=== PATIENT | male | born 1945 | race Caucasian/White ===

== ENCOUNTER → 2021-12-27 | Outpatient (CLI) | payer MEDICARE ==
[2021-12-27 16:49] LABS: INR 0.9 (<1.2); Partial Thromboplastin Time 22.5 sec (22.0-30.0); Prothrombin Time 10.2 sec (9.0-12.0)
[2021-12-27 22:40] LABS: Appearance,Urine Clear (Clear); Bilirubin,Urine Negative (Negative); Blood,Urine Negative (Negative); Color,Urine Yellow (Yellow); Ketones,Urine Trace mg/dL (Negative); Leukocyte Esterase,Urine Negative (Negative); Nitrite,Urine Negative (Negative); Protein,Urine Negative (Negative); Specific Gravity,Urine 1.027 (1.001-1.030); Urobilinogen,Urine 0.2 (0.2,1.0)
[2021-12-28 00:29] LABS: African American GFR (CKD) 54.1 (60.0-200.0); Albumin 4.6 g/dL (3.8-4.9); Albumin/Globulin Ratio 1.95 (1.60-3.17); Anion Gap 15.7 mmol/L (10.00-18.00); BUN/Creat Ratio 22.53 Ratio (12.00-20.00); Blood Urea Nitrogen 32.9 mg/dL (9.0-27.0); Calcium 9.9 mg/dL (8.7-10.3); Carbon Dioxide 23.5 mmol/L (20.0-27.5); Globulin 2.3 g/dL (1.6-3.3); Non-African American GFR(CKD) 46.7 (60.0-200.0); Total Bilirubin 0.3 mg/dL (0.30-1.20); Total Protein 6.9 g/dL (6.2-8.2)
[2021-12-28 00:56] LABS: HCT 40.3 % (39.6-50.0); HGB 12.7 g/dL (13.0-17.0); MCH 33.2 pg (27.0-32.0); MCHC 31.5 g/dL (32.0-37.0); MCV 105.5 fL (80.0-97.0); NRBC Per 100 WBC 0 /100 WBCS (0.0-0.0); Platelet Count 343 X 10*3/uL (140-440); RBC 3.82 X 10*6/uL (4.40-5.60); RDW 12.7 % (11.5-14.5); WBC 7.39 X 10*3/uL (4.50-10.00)
--- NOTE | 2021-12-28 07:09 | XR ---
EXAMINATION TYPE: XR chest 2V DATE OF EXAM: 12/27/2021 COMPARISON: NONE HISTORY: Shortness of breath TECHNIQUE: Frontal and lateral views of the chest are obtained. FINDINGS: Scattered senescent parenchymal changes noted. Hyperinflation compatible with COPD. No evidence for infiltrate. No evidence for atelectasis. Heart size is stable. Mediastinal structures are stable and grossly unremarkable. No evidence for hilar prominence. Degenerative changes dorsal spine. IMPRESSION: 1. No evidence for acute pulmonary disease.
== END | disposition home or self-care (01) ==
LOC: LABPAT 14:55
PROVIDERS: ATTEND Orthopaedic Surgery
DX: Z01.812 Encounter for preprocedural laboratory examination (principal); R07.9 Chest pain, unspecified; R06.02 Shortness of breath
CPT/HCPCS: 71046; 80053; 81003; 85027; 85610; 85730; 87070

== ENCOUNTER → 2022-01-03 | Outpatient (CLI) | payer MEDICARE ==
[~2022-01-03] MED LIST: REGADENOSON 0.4 MG/5 ML SYRINGE IV PRN
--- NOTE | 2022-01-03 11:00 | ECHOF ---
Referral Reason:R94.31 MEASUREMENTS -------- HEIGHT: 180.3 cm WEIGHT: 80.7 kg BP: RVIDd: 2.6 cm (< 3.3) IVSd: 0.9 cm (0.6 - 1.1) LVIDd: 3.8 cm (3.9 - 5.3) LVPWd: 0.9 cm (0.6 - 1.1) IVSs: 1.7 cm LVIDs: 2.3 cm LVPWs: 1.5 cm Ao Diam: 3.0 cm (2.0 - 3.7) AV Cusp: 1.7 cm (1.5 - 2.6) LA Diam: 2.9 cm (2.7 - 3.8) MV EXCURSION: 12.842 mm (> 18.000) MV EF SLOPE: 48 mm/s (70 - 150) EPSS: 1.6 cm MV E Kartik: 0.55 m/s MV DecT: 240 ms MV A Kartik: 0.66 m/s MV E/A Ratio: 0.82 AV maxP.74 mmHg AV meanP.56 mmHg RAP: 5.00 mmHg RVSP: 18.61 mmHg FINDINGS -------- Undetermined rhythm. This was a technically difficult study with suboptimal views. The left ventricular size is normal. There is mild concentric left ventricular hypertrophy. Overa ll left ventricular systolic function is normal with, an EF between 55 - 60 %. The right ventricle is normal in size. The left atrial size is normal. The right atrial size is normal. Aortic valve is trileaflet and is mildly thickened. There is mild aortic valve sclerosis. Peak/me an gradient across the Aortic Valve is 13.74mmHg / 8.56mmHg. The mitral valve is normal. The mitral valve leaflets are mildly thickened. Mild mitral regurgita tion is present. The tricuspid valve appears structurally normal. Mild tricuspid regurgitation present. Right vent ricular systolic pressure is normal at < 35 mmHg. There is no pulmonic regurgitation present. The aortic root size is normal. Normal inferior vena cava with normal inspiratory collapse consistent with estimated right atrial pre ssure of 5 mmHg. There is no pericardial effusion. CONCLUSIONS -------- 1. The left ventricular size is normal. 2. There is mild concentric left ventricular hypertrophy. 3. Overall left ventricular systolic function is normal with, an EF between 55 - 60 %. 4. Aortic valve is trileaflet and is mildly thickened. 5. There is mild aortic valve sclerosis. 6. Peak/mean gradient across the Aortic Valve is 13.74mmHg / 8.56mmHg. 7. The mitral valve leaflets are mildly thickened. 8. Mild mitral regurgitation is present. 9. Mild tricuspid regurgitation present. 10. There is no pericardial effusion. CONTACT LENS LATHE OPERATOR: Kiya Light RDCS
--- NOTE | 2022-01-03 14:10 | EST ---
EXERCISE STRESS AGE: 76 SEX: M HT: 5'8" WT: 178 lbs. PROTOCOL: Lexiscan Cardiolite STAGE: NA DURATION OF EXERCISE: NA HEART RATE REST: 103 BLOOD PRESSURE REST: 136/75 MAXIMUM HEART RATE ACHIEVED: 128 MAXIMUM BLOOD PRESSURE: 146/72 85% MPHR: 124 100% MPHR: 146 METS: NA INDICATIONS: Abnormal EKG. CLINICAL INFORMATION: Baseline EKG shows sinus rhythm with right bundle branch block. Patient was given intravenous Lexiscan as per protocol, did not have chest pain or diagnostic ST-segment depression. CONCLUSIONS: 1. Inconclusive EKG part of the stress test due to baseline EKG abnormalities. 2. Cardiolite portion of the stress test will be reported separately. MMODL / IJN: [id number] /
--- NOTE | 2022-01-03 16:46 | NM ---
EXAMINATION TYPE: NM stress lexiscan cardiolite DATE OF EXAM: 01/03/2022 COMPARISON: NONE HISTORY: R 94.31 TECHNIQUE: After the intravenous administration of 9.15 mCi Tc 99m Sestamibi - Cardiolite resting SP ECT images acquired 45 minutes post injection. At peak stress 25.4 mCi Tc 99m Sestamibi - Stress images obtained 30 minutes post injection The patient was stressed utilizing 0.4 mg Lexiscan FINDINGS: No fixed defects are evident There is diminished radiotracer accumulation along the lateral wall on the stress images. This has mo re normal radiotracer distribution on the resting images compatible with a stress-induced ischemic ch kemi. This is also identified on the polar maps. There is mild mid to inferior septal wall to measure radiotracer is on stress images. This area appea rs matched with the resting images. The compatible prior small infarct. There is some dyskinesia along the anterior wall near the cardiac base. Ejection fraction is calculated to be 65 % is normal. IMPRESSION: 1. Stress-induced ischemic change lateral wall left ventricle. 2. Wall dyskinesia at the cardiac base along the anterior wall. 3. 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
== END | disposition home or self-care (01) ==
LOC: RADECHMAIN 08:10
PROVIDERS: ATTEND Family Medicine
DX: I51.7 Cardiomegaly (principal); I35.8 Other nonrheumatic aortic valve disorders; R94.31 Abnormal electrocardiogram [ECG] [EKG]
CPT/HCPCS: 93017; 93306; 78452; A9500; J2785

== ENCOUNTER → 2022-02-12 | Outpatient (CLI) | payer MEDICARE ==
[2022-02-12 13:37] LABS: Partial Thromboplastin Time 23.4 sec (22.0-30.0); Prothrombin Time 10.5 sec (9.0-12.0)
[2022-02-12 18:12] LABS: HCT 35.6 % (39.6-50.0); HGB 11.2 g/dL (13.0-17.0); MCH 32.9 pg (27.0-32.0); MCHC 31.5 g/dL (32.0-37.0); MCV 104.7 fL (80.0-97.0); Mean Platelet Volume 8.9 fL (9.5-12.2); NRBC Per 100 WBC 0 /100 WBCS (0.0-0.0); Platelet Count 336 X 10*3/uL (140-440); RDW 12.9 % (11.5-14.5); WBC 5.81 X 10*3/uL (4.50-10.00)
[2022-02-12 18:18] LABS: African American GFR (CKD) 69.6 (60.0-200.0); Anion Gap 12.9 mmol/L (10.00-18.00); BUN/Creat Ratio 22.12 Ratio (12.00-20.00); Blood Urea Nitrogen 26.1 mg/dL (9.0-27.0); Carbon Dioxide 25.5 mmol/L (20.0-27.5); Potassium 4.4 mmol/L (3.5-5.5)
[2022-02-12 18:19] LABS: Albumin 4.1 g/dL (3.8-4.9); Albumin/Globulin Ratio 1.94 (1.60-3.17); Calcium 9.4 mg/dL (8.7-10.3); Globulin 2.1 g/dL (1.6-3.3); Total Bilirubin 0.5 mg/dL (0.30-1.20); Total Protein 6.2 g/dL (6.2-8.2)
[2022-02-12 20:38] LABS: Appearance,Urine Clear (Clear); Bacteria,Urine None Seen /HPF (None Seen); Bilirubin,Urine Negative (Negative); Blood,Urine Negative (Negative); Color,Urine Yellow (Yellow); Ketones,Urine Trace mg/dL (Negative); Nitrite,Urine Negative (Negative); Specific Gravity,Urine 1.023 (1.001-1.030); Urobilinogen,Urine 0.2 (0.2,1.0)
== END | disposition home or self-care (01) ==
LOC: LABPAT 11:24
PROVIDERS: ATTEND Orthopaedic Surgery
DX: Z01.812 Encounter for preprocedural laboratory examination (principal); M16.11 Unilateral primary osteoarthritis, right hip
CPT/HCPCS: 80053; 81001; 85027; 85610; 85730; 87070

== ENCOUNTER 2022-02-20 10:05 | Observation (INO) | payer MEDICARE ==
[2022-02-16 16:54] VITALS: BMI 23.6
[~2022-02-20 10:05] MED LIST changes: +ACETAMINOPHEN TAB 500 MG TAB PO PRN; +DEXAMETHASONE SOD PHOSPHATE 4 MG/ML 1 ML VIAL IV ONE; +GABAPENTIN 300 MG CAP PO PRN; +HYDROmorphone 0.5 MG/0.5 ML SYRINGE IVP PRN; +MELOXICAM 7.5 MG TAB PO PRN; +MIDAZOLAM 2 MG/2 ML VIAL IV PRN; +ONDANSETRON 4 MG/2 ML VIAL IVP ONE; -REGADENOSON 0.4 MG/5 ML SYRINGE IV PRN; +TRANEXAMIC ACID IN NACL,ISO-OS 1,000 MG in SALINE 1 100ML.BAG IVPB PRN
[2022-02-20 10:42] LABS: Glucose,Whole Blood 158 mg/dL (75-99)
[2022-02-20] MEDS: LACTATED RINGERS 1,000 ML IV SCH (10:43)
[2022-02-20] MEDS ORDERED: ACETAMINOPHEN TAB 500 MG TAB ONE (10:49)
[2022-02-20] MEDS ORDERED: MIDAZOLAM 2 MG/2 ML VIAL ONE (11:13)
[2022-02-20] MEDS ORDERED: fentaNYL (PF) 50 MCG/ML 2 ML AMP ONE (11:13)
[2022-02-20] MEDS ORDERED: PHENYLEPHRINE-0.9% NACL SYG 1,000 MCG/10 ML SYRINGE ONE (11:13)
[2022-02-20] MEDS ORDERED: PROPOFOL 10 MG/ML 20 ML VIAL IV ONE (11:13)
[2022-02-20] MEDS ORDERED: TRANEXAMIC ACID IN NACL,ISO-OS 1,000 MG/100 ML BAG ONE (11:13)
[2022-02-20] MEDS ORDERED: ceFAZolin 1,000 MG in SODIUM CHLORIDE 0.9% 1,000 ML IRRIGATION ONE (11:18)
[2022-02-20] MEDS ORDERED: ROPIVACAINE 5 MG/ML 30 ML VIAL MISCELLANE ONE ×2 (11:44→12:20)
[2022-02-20] MEDS ORDERED: LACTATED RINGERS 1,000 ML IV ONE (12:07)
--- NOTE | 2022-02-20 12:26 | P.OP ---
Date of Procedure: 02/20/22 Preoperative Diagnosis: Severe osteoarthritis right hip Postoperative Diagnosis: Severe osteoarthritis right hip Procedure(s) Performed: Right total hip arthroplasty with a direct anterior approach Implants: [employer] Polarstem standard size 2 collared [employer] R3, 3 hole hemispherical acetabular shell, 52 mm [employer] Reflection 6.5 mm cancellus screw, 20 mm 2 [employer] R3, XLPE 20 acetabular liner [employer] Oxinium femoral head 36 m, +0 All components were press-fit. The articulation is Oxinium on polyethylene. Anesthesia: spinal Surgeon: Michael Parker [employer] Installer #1: Stephanie Arreguin Estimated Blood Loss (ml): 250 Pathology: other (Femoral head) Condition: stable Disposition: PACU Indications for Procedure: After failure of conservative treatment we discussed the surgical and nonsurgical treatment options at length. Patient wishes to proceed with a total hip arthroplasty with a direct anterior approach. Complications specific to this procedure were discussed at length, including but not limited to infection, leg length discrepancy, dislocation, nerve injury, and fracture. Covid-19 was also discussed at length with the patient, and they are aware of the current policies and procedures. The patient was given the option of delaying surgery, but they elect to proceed knowing these risks. Patient is aware of all these complications and informed consent was obtained Operative Findings: The operative findings are consistent with severe osteoarthritis of the right hip Description of Procedure: Patient was seen and evaluated in the preoperative area and the consent was reviewed. The operative site was marked with a skin marker. The patient was then brought to the operating room and given preoperative antibiotics intravenously. 1 g of Tranexamic acid was also given intravenously. A spinal anesthetic was administered by the anesthesia department. The patient was then placed on the [place] table with the bony prominences well-padded. The hip area was then prepped with a ChloraPrep solution and draped in the usual sterile fashion. A universal timeout was then performed, which confirmed the patient's name, surgical site, ALLERGIES, and procedure being performed on the consent. Next the incision site was located at 1 cm distal and 2 cm lateral to the anterior superior iliac spine. The skin and subcutaneous tissues were sharply incised. Incision was carefully dissected down to the fascia overlying the tensor fascia alex muscle. This fascia was then incised in line with the incision. Care was taken to stay laterally in order to avoid injuring the lateral femoral cutaneous nerve. Next, using blunt finger dissection, the tensor fascia alex muscle was dissected off its investing fascia. The muscle was then carefully retracted laterally with a cobra retractor over the lateral neck of the femur. Next, the circumflex vessels were identified and cauterized using the AquaMantis device. The anterior hip capsule was then exposed. The capsule was then opened and an inverted T fashion. Cobra retractors were then placed intracapsularly. The retractors were maintained intracapsular throughout the procedure. The proximal femur was then visualized. Fluoroscopic x-rays were then taken in order to evaluate the preoperative leg lengths. A small amount of traction was placed on the leg. The femoral neck was then osteotomized at the appropriate level above the lesser trochanter. A small wedge of bone was then removed from the remaining femoral head. Next, using a corkscrew the femoral head was removed from the acetabulum. On gross visual inspection, the femoral head had complete loss of articular cartilage and multiple periarticular osteophytes. The femoral head was then measured. Attention was then turned to the acetabulum. The acetabulum was exposed and any remaining labrum was excised. Sequential reaming of the acetabulum was performed using fluoroscopic guidance until there was a good bed of bleeding cancellus bone. When the appropriate size was reached, a trial was then placed. The position and fit of the trial was checked with fluoroscopy. The trial was then removed. Then, using fluoroscopic guidance, the final implant was impacted at 20 of anteversion and 40 of abduction, and fully seated in the acetabulum. 2 screws were then placed in the acetabulum. Again fluoroscopy was used to check position of the screws. Next, the liner was then impacted, with a 20 elevated liner located in the anterior superior quadrant. Component locking was confirmed. Attention was then directed to the femur. With the aid of the [place]wood table, the femur was externally rotated to approximately 130, extended, and adducted under the opposite leg. A side hook was then placed under the proximal femur, and the side hook elevator was used to elevate the proximal femur while releasing the capsule. Retractors were then placed. A capsular release was performed, as well as a release of the conjoined tendon, which afforded excellent visualization of the proximal femur. Next, a box osteotome was used to lateralize the proximal femur. A wrapper hand was then used to locate the femoral canal. Sequential broaching was then performed with appropriate size which afforded excellent fixation in the proximal femur. A trial was then placed with appropriate head and neck, and the hip was gently reduced with the aid of the [place]wood table. Fluoroscopy was then used to check position of the components, as well as to ensure equal leg lengths. The hip was then gently dislocated and the trials were then removed. Final implants were then impacted and the hip was again reduced. Final fluoroscopic x-rays confirmed that the components were in anatomic position, as well as equal leg lengths. The hip was also taken through range of motion, and found to be stable. The hip was then copiously irrigated with antibiotic solution with pulsatile lavage. The hip was then irrigated with Irrisept solution. The soft tissues were then injected with a ropivacaine solution. A second dose of 1 g of Tranexamic acid was also given intravenously. The fascia was then closed with 2-0 strata fix suture. The subcutaneous tissue was closed with 3-0 Vicryl. The subcuticular tissue was closed with 3-0 strata fix suture. The skin was then closed with Exofin skin glue. After the glue and dried, and Optifoam silver impregnated dressing was applied. The patient was then transferred to the recovery room in stable condition. The assistant cook SIRI Walker was required due to the complexity of surgery, and the need for skilled surgical aides teacher for positioning, draping, exposure, retraction, and closure of the wound.
--- NOTE | 2022-02-20 12:41 | FL ---
EXAMINATION TYPE: FL guidance operating room, XR Hip Limited RT DATE OF EXAM: 02/20/2022 COMPARISON: NONE HISTORY: 77-year-old male is here right hip replacement TECHNIQUE: Intraoperative fluoroscopy FINDINGS: 2 intraoperative fluoroscopic images demonstrating right hip total arthroplasty. Previous left hip total arthroplasty is noted. FLUOROSCOPY Fluoroscopy time of 33 seconds was used during right hip replacement. 2 image/s document/s the proc edure. IMPRESSION: Intraoperative fluoroscopy as above.
[2022-02-20] MEDS ORDERED: NALOXONE 0.4 MG/ML 1 ML VIAL IV PRN (12:48)
[2022-02-20] MEDS ORDERED: ONDANSETRON 4 MG/2 ML VIAL IVP PRN (12:48)
[2022-02-20] MEDS ORDERED: MAGNESIUM HYDROXIDE 2,400 MG/10 ML CUP PO PRN (12:48)
[2022-02-20] MEDS ORDERED: HYDROmorphone 0.5 MG/0.5 ML SYRINGE IVP PRN ×3 (12:48)
[2022-02-20] MEDS ORDERED: HYDROcodone/APAP 7.5-325MG 1 EACH TAB PO PRN ×2 (12:51)
--- NOTE | 2022-02-20 13:13 | XR ---
EXAMINATION TYPE: XR Hip Limited RT DATE OF EXAM: 02/20/2022 Comparison: None Clinical History: 77-year-old male status post ARTHROPLASTY Findings: Image shows placement of right hip total arthroplasty. Acetabular cup and femoral stem components of the prosthesis appear well seated without periprosthetic fracture. There appears to be some residual bony debris along the lateral aspect of the acetabular cup component. Scattered soft tissue air relat ed to recent operation. Vascular calcifications. Impression: Uncomplicated postoperative appearance right hip total arthroplasty. Some residual bony debris noted along the lateral aspect of the acetabular cup component.
[2022-02-20 15:37] LABS: Glucose,Whole Blood 172 mg/dL (75-99)
[2022-02-20] MEDS: SODIUM CHLORIDE 0.9% 1,000 ML IV SCH (19:21)
--- NOTE | 2022-02-20 19:56 | CONS ---
CONSULTATION This is a 77-year-old white male with diabetes and abnormal cardiac stress test. He underwent spinal surgery to have his hip replaced on the right for severe intractable pain. He has a recent history of hypoglycemia, for which some of his diabetic medicines were stopped, which cleared that up. He failed a stress test, but Cardiology recommended spinal surgery, as his insurance failed to allow a heart catheterization. He has NO ALLERGIES. Home medications: Metformin 500 b.i.d., atorvastatin 40 mg daily, lisinopril/hydrochlorothiazide 20/25 daily, tramadol 50 b.i.d., meloxicam 15 daily. Past surgical history: Cataracts, left total hip. He smoke, consumes alcohol occasionally. Otherwise negative. He is postop surgery at this time. Heart S1, S2. Lungs clear. GI soft. Hematology negative Homans. Hip wrapped. ASSESSMENT: 1. History of coronary artery disease. 2. Diabetes mellitus. 3. Dyslipidemia. 4. Hypertension. Prognosis guarded. Treat him with all his home medicines possible. Monitor him postoperatively for any signs of heart disease. He is saturating 99% on room air. Blood pressure 138/78, temperature 98, pulse 67 at this time. MMODL / IJN: [id number] /
[2022-02-20] MEDS ORDERED: ATORVASTATIN 10 MG TAB PO SCH (21:00)
[2022-02-20] MEDS: SENNOSIDES-DOCUSATE SODIUM 1 EACH TAB PO SCH (21:56)
[2022-02-20] MEDS: traMADol 50 MG TAB PO SCH (21:56)
[2022-02-20] MEDS: ASPIRIN 325 MG TAB PO SCH (21:57)
[2022-02-20] MEDS: METOPROLOL SUCCINATE (ER) 25 MG TAB.ER.24H PO SCH (21:57)
[2022-02-20] MEDS: ATORVASTATIN 40 MG TAB PO SCH (21:57)
[2022-02-20] MEDS: prednisoLONE ACETATE 1% OPHTH DROPS 5 ML BTL LEFT EYE SCH (21:58)
[2022-02-20 22:01] LABS: Glucose,Whole Blood 440 mg/dL (75-99)
[2022-02-20] MEDS: INSULIN ASPART (NovoLOG) 100 UNIT/ML VIAL SQ SCH (22:53)
[2022-02-20] MEDS: metFORMIN 500 MG TAB PO SCH (22:53)
[2022-02-21] MEDS: LACTATED RINGERS 1,000 ML IV SCH (06:23)
[2022-02-21 07:11] LABS: Glucose,Whole Blood 174 mg/dL (75-99)
[2022-02-21] MEDS ORDERED: INSULIN ASPART (NovoLOG) 100 UNIT/ML VIAL SQ SCH (07:30)
[2022-02-21] MEDS: LISINOPRIL-HCTZ 10-12.5 MG 1 EACH TAB PO SCH (07:37)
[2022-02-21] MEDS: ASPIRIN 325 MG TAB PO SCH ×2 (07:37→21:30)
[2022-02-21] MEDS: traMADol 50 MG TAB PO SCH ×2 (07:37→21:31)
[2022-02-21] MEDS: INSULIN ASPART (NovoLOG) 100 UNIT/ML VIAL SQ SCH ×4 (07:38→21:33)
[2022-02-21] MEDS: SODIUM CHLORIDE 0.9% 1,000 ML IV SCH ×2 (07:38→23:29)
[2022-02-21] MEDS: metFORMIN 500 MG TAB PO SCH ×2 (07:38→21:31)
--- NOTE | 2022-02-21 08:40 | P.PN ---
Subjective Progress Note Date: 02/21/22 Principal diagnosis: Primary osteoarthritis right hip. Status post total right hip arthroplasty was direct anterior approach This is a 77-year-old male who is status post total right hip arthroplasty was direct anterior approach. He is doing fairly well from an orthopedic standp oint. He is awaiting physical therapy this morning. He is anticipating discharge to inpatient rehab in the next day or so. He has no new complaints or concerns today. Vital signs and labs are stable. Objective - Vital Signs Vital signs: Vital Signs Temp 98.6 F 02/21/22 02:00 Pulse 79 02/21/22 02:00 Resp 16 02/20/22 20:00 BP 121/56 02/21/22 02:00 Pulse Ox 99 02/21/22 02:00 Intake & Output 02/20/22 02/21/22 02/21/22 18:59 06:59 18:59 Intake Total 1551 Output Total 250 Balance 1301 Weight 73.4 kg Intake: IV 1551 Output: Estimated Blood Loss 250 Other: Voiding Method Urinal Diaper # Voids 2 # Bowel Movements 0 - Exam Exam of the right hip reveals that the dressing is clean, dry and intact. He has full foot and ankle motion bilaterally. No calf pain with palpation. Neurovascular status to the lower extremities is intact. - Labs Labs: Abnormal Lab Results - Last 24 Hours (Table) 02/20/22 02/20/22 02/20/22 Range/Units 10:38 15:34 22:00 POC Glucose (mg/dL) 158 H 172 H 440 H (75-99) mg/dL 02/21/22 Range/Units 07:09 POC Glucose (mg/dL) 174 H (75-99) mg/dL Assessment and Plan (1) Primary localized osteoarthritis of right hip Current Visit: Yes Status: Acute Code(s): M16.11 - UNILATERAL PRIMARY OSTEOARTHRITIS, RIGHT HIP SNOMED Code(s): 995519017617138 (2) Status post total replacement of right hip Current Visit: Yes Status: Acute Code(s): Z96.641 - PRESENCE OF RIGHT ARTIFICIAL HIP JOINT SNOMED Code(s): 177421073200 Plan: The clinical findings are discussed with the patient. We will begin physical therapy today and await rehab placement and the next day or so.
[2022-02-21 08:59] LABS: Basophils # (A) 0.05 X 10*3/uL (0.00-0.10); Basophils % (A) 0.7 %; Eosinophils % (A) 1.4 %; HCT 28.4 % (39.6-50.0); HGB 9.2 g/dL (13.0-17.0); Immature Grans, Automated 0.3 %; Lymphocytes # (A) 1.01 X 10*3/uL (0.90-5.00); Lymphocytes % (A) 14.1 %; MCH 33.8 pg (27.0-32.0); MCHC 32.4 g/dL (32.0-37.0); MCV 104.4 fL (80.0-97.0); Mean Platelet Volume 9.4 fL (9.5-12.2); Monocytes # (A) 1.08 X 10*3/uL (0.20-1.00); Monocytes % (A) 15.1 %; NRBC Per 100 WBC 0 /100 WBCS (0.0-0.0); Neutrophils # (A) 4.91 X 10*3/uL (1.80-7.70); Neutrophils % (A) 68.4 %; Platelet Count 231 X 10*3/uL (140-440); RBC 2.72 X 10*6/uL (4.40-5.60); RDW 13.4 % (11.5-14.5); WBC 7.17 X 10*3/uL (4.50-10.00)
[2022-02-21] MEDS ORDERED: ASPIRIN 81 MG PO SCH (09:00)
[2022-02-21 11:43] LABS: Glucose,Whole Blood 153 mg/dL (75-99)
[2022-02-21] MEDS: prednisoLONE ACETATE 1% OPHTH DROPS 5 ML BTL LEFT EYE SCH ×2 (12:28→21:35)
--- NOTE | 2022-02-21 15:36 | PN ---
PROGRESS NOTE This 77-year-old white male is status post direct anterior approach this morning. Yesterday he was having minimal pains. Blood pressure 121/56, pulse 79, respiratory rate 16, O2 99, temperature 98.6. He is on oral pain medications. Cardiovascular S1, S2. Lungs clear. GI soft. He is status post osteoarthritis and replacement of the right hip. Pain is greatly improved. Monitor his sugars while he is here. He is on Accu-Cheks. His sugar was 400 last night. Hemoglobin is 9.2. Now sugars are in the mid 100. Sugars are 153 up to 440. Prognosis is guarded. Continue current treatments. MMODL / IJN: [id number] /
[2022-02-21 16:41] LABS: Glucose,Whole Blood 172 mg/dL (75-99)
[2022-02-21 20:22] LABS: Glucose,Whole Blood 137 mg/dL (75-99)
[2022-02-21] MEDS: SENNOSIDES-DOCUSATE SODIUM 1 EACH TAB PO SCH (21:31)
[2022-02-21] MEDS: ATORVASTATIN 40 MG TAB PO SCH (21:31)
[2022-02-21] MEDS: METOPROLOL SUCCINATE (ER) 25 MG TAB.ER.24H PO SCH (21:31)
[2022-02-22 03:29] LABS: Glucose,Whole Blood 205 mg/dL (75-99)
--- NOTE | 2022-02-22 05:06 | XR ---
EXAMINATION TYPE: XR Hip RT and AP Pelvis DATE OF EXAM: 02/22/2022 COMPARISON: 02/20/2022 HISTORY: Fall. Pain TECHNIQUE: 3 views FINDINGS: Pelvic ring is intact. There is bilateral hip prosthesis. Proximal right femur is intact. N o fracture seen. Sacroiliac joints are intact. IMPRESSION: Negative exam. No fracture seen. No adverse change.
--- NOTE | 2022-02-22 05:07 | XR ---
EXAMINATION TYPE: XR knee complete bilateral DATE OF EXAM: 02/22/2022 COMPARISON: NONE HISTORY: Fall. Pain TECHNIQUE: 3 views each knee FINDINGS: There is atherosclerotic vascular calcification. There is no sign of knee joint effusion. I see no fracture nor dislocation. There is no significant joint space narrowing. There is no sign of joint effusion. IMPRESSION: No acute abnormality of the left and right knee.
[2022-02-22 06:50] LABS: Glucose,Whole Blood 201 mg/dL (75-99)
[2022-02-22] MEDS: ASPIRIN 325 MG TAB PO SCH ×2 (07:31→20:29)
[2022-02-22] MEDS: metFORMIN 500 MG TAB PO SCH ×2 (07:32→20:28)
[2022-02-22] MEDS: LISINOPRIL-HCTZ 10-12.5 MG 1 EACH TAB PO SCH (07:32)
[2022-02-22] MEDS: INSULIN ASPART (NovoLOG) 100 UNIT/ML VIAL SQ SCH ×4 (07:32→20:28)
[2022-02-22] MEDS: prednisoLONE ACETATE 1% OPHTH DROPS 5 ML BTL LEFT EYE SCH ×2 (07:33→20:29)
[2022-02-22] MEDS: traMADol 50 MG TAB PO SCH ×2 (07:34→20:30)
--- NOTE | 2022-02-22 08:52 | P.PN ---
Subjective Progress Note Date: 02/22/22 This is a 77 year old male who is status post right total hip arthroplasty. This is postoperative day #1 and patient is seen and evaluated at bedside today. Patient states that he fell last night trying to use the bathroom. Patient states that he landed on his elbows and denies head injury or loss of conci ousness. Patient states that he feels good this morning and has been able to walk with the nursing staff. Per nursing, the patient has been having trouble with voiding and got up by himself to use the bathroom when he fell. Objective - Vital Signs Vital signs: Vital Signs Temp 98.7 F 02/22/22 03:30 Pulse 89 02/22/22 03:30 Resp 16 02/22/22 02:00 BP 114/68 02/22/22 03:30 Pulse Ox 99 02/22/22 03:30 Intake & Output 02/21/22 02/22/22 02/22/22 18:59 06:59 18:59 Output Total 1100 Balance -1100 Output: Urine 1100 Coude 1100 Other: # Voids 1 # Bowel Movements 1 - Exam On exam patient is lying comfortably in bed in no acute distress. Patient is alert and oriented x3. Dressing is clean, dry and intact. There is minimal soft tissue swelling. Calf is soft and nontender to palpation. Sensation intact. Neurovascular status and circulatory status are intact. - Labs CBC & Chem 7: 02/21/22 04:59 Labs: Abnormal Lab Results - Last 24 Hours (Table) 02/21/22 02/21/22 02/21/22 Range/Units 04:59 11:42 16:36 RBC 2.72 L (4.40-5.60) X 10*6/uL Hgb 9.2 L (13.0-17.0) g/dL Hct 28.4 L (39.6-50.0) % MCV 104.4 H (80.0-97.0) fL MCH 33.8 H (27.0-32.0) pg MPV 9.4 L (9.5-12.2) fL Monocytes # 1.08 H (0.20-1.00) X 10*3/uL POC Glucose (mg/dL) 153 H 172 H (75-99) mg/dL 02/21/22 02/22/2202/22/22 Range/Units 20:21 03:28 06:47 RBC (4.40-5.60) X 10*6/uL Hgb (13.0-17.0) g/dL Hct (39.6-50.0) % MCV (80.0-97.0) fL MCH (27.0-32.0) pg MPV (9.5-12.2) fL Monocytes # (0.20-1.00) X 10*3/uL POC Glucose (mg/dL) 137 H 205 H 201 H (75-99) mg/dL Assessment and Plan (1) Primary localized osteoarthritis of right hip Current Visit: Yes Status: Acute Code(s): M16.11 - UNILATERAL PRIMARY OSTEOARTHRITIS, RIGHT HIP SNOMED Code(s): 110047451686884 (2) Status post total replacement of right hip Current Visit: Yes Status: Acute Code(s): Z96.641 - PRESENCE OF RIGHT ARTIFICIAL HIP JOINT SNOMED Code(s): 670197858162 Plan: 1. Weightbearing as tolerated to the right lower extremity with a walker. 2. Continue anticoagulation with aspirin. 3. Continue routine postoperative care and pain control. 4. Appreciate input from medicine. 5. X-rays of the right hip, pelvis and bilateral knees are reviewed and are negative. 6. Planning for discharge to [facility] in the next 24-48 hours.
[2022-02-22 11:35] LABS: Glucose,Whole Blood 213 mg/dL (75-99)
[2022-02-22] MEDS ORDERED: FLUoxetine HCL 10 MG CAP PO STA (12:12)
[2022-02-22] MEDS: TAMSULOSIN 0.4 MG CAP.ER.24H PO SCH (12:18)
[2022-02-22] MEDS: FLUoxetine HCL 10 MG CAP PO SCH (13:56)
[2022-02-22] MEDS: CYCLOBENZAPRINE 10 MG TAB PO PRN ×2 (14:42→20:28)
[2022-02-22 16:28] LABS: Glucose,Whole Blood 177 mg/dL (75-99)
[2022-02-22] MEDS: LACTATED RINGERS 1,000 ML IV SCH (19:49)
[2022-02-22] MEDS: SODIUM CHLORIDE 0.9% 1,000 ML IV SCH (19:49)
[2022-02-22 20:04] LABS: Glucose,Whole Blood 194 mg/dL (75-99)
[2022-02-22] MEDS: SENNOSIDES-DOCUSATE SODIUM 1 EACH TAB PO SCH (20:28)
[2022-02-22] MEDS: ATORVASTATIN 40 MG TAB PO SCH (20:29)
[2022-02-22] MEDS: METOPROLOL SUCCINATE (ER) 25 MG TAB.ER.24H PO SCH (20:29)
--- NOTE | 2022-02-22 20:45 | PN ---
PROGRESS NOTE A 77-year-old white male status post hip replacement, right-sided hip pain. He is having no chest pain, shortness of breath. He is having difficulty urinating. Started on Flomax 0.4 mg daily. Continue on this at this point and for depression we will start him on fluoxetine 10 mg daily. Discussed with the patient both of these medications. He will go to rehab center at [facility] when he is released. Temp 98.8, blood pressure 143/66, O2 99, pulse 90, respiratory 16 to 18. ASSESSMENT: 1. Status post hip replacement. 2. Hypertension. 3. Coronary artery disease. 4. Diabetes mellitus, sugars in the mid 100s to 200s. On Accu-Chek protocol. 5. Possibly get him into the rehab center soon. 6. He may have to go up there with a Mart[place]nez on Flomax for few days and then I can have it removed. MMODL / IJN: [id number] /
[2022-02-23] MEDS: SODIUM CHLORIDE 0.9% 1,000 ML IV SCH (05:58)
[2022-02-23 07:03] LABS: Glucose,Whole Blood 184 mg/dL (75-99)
[2022-02-23] MEDS: metFORMIN 500 MG TAB PO SCH (07:19)
[2022-02-23] MEDS: ASPIRIN 325 MG TAB PO SCH (07:19)
[2022-02-23] MEDS: INSULIN ASPART (NovoLOG) 100 UNIT/ML VIAL SQ SCH ×2 (07:19→11:53)
[2022-02-23] MEDS: prednisoLONE ACETATE 1% OPHTH DROPS 5 ML BTL LEFT EYE SCH (07:20)
[2022-02-23] MEDS: LISINOPRIL-HCTZ 10-12.5 MG 1 EACH TAB PO SCH (07:20)
[2022-02-23] MEDS: FLUoxetine HCL 10 MG CAP PO SCH (07:20)
[2022-02-23] MEDS: TAMSULOSIN 0.4 MG CAP.ER.24H PO SCH (07:22)
[2022-02-23] MEDS: traMADol 50 MG TAB PO SCH (07:24)
[2022-02-23 07:28] VITALS: RESP 17
[2022-02-23 09:05] LABS: Basophils # (A) 0.03 X 10*3/uL (0.00-0.10); Basophils % (A) 0.4 %; Eosinophils # (A) 0.18 X 10*3/uL (0.04-0.35); Eosinophils % (A) 2.6 %; HCT 26.1 % (39.6-50.0); HGB 8.6 g/dL (13.0-17.0); Immature Grans, Automated 0.4 %; Lymphocytes # (A) 0.91 X 10*3/uL (0.90-5.00); Lymphocytes % (A) 13.3 %; MCH 33.7 pg (27.0-32.0); MCV 102.4 fL (80.0-97.0); Mean Platelet Volume 9.6 fL (9.5-12.2); Monocytes # (A) 0.96 X 10*3/uL (0.20-1.00); Monocytes % (A) 14.1 %; NRBC Per 100 WBC 0 /100 WBCS (0.0-0.0); Neutrophils # (A) 4.72 X 10*3/uL (1.80-7.70); Neutrophils % (A) 69.2 %; Platelet Count 238 X 10*3/uL (140-440); RBC 2.55 X 10*6/uL (4.40-5.60); RDW 13.8 % (11.5-14.5); WBC 6.83 X 10*3/uL (4.50-10.00)
--- NOTE | 2022-02-23 09:37 | P.DS ---
Providers Date of admission: 02/22/22 13:38 Expected date of discharge: 02/23/22 Attending physician: Michael Parker Consults: 02/20/22 12:48 Consult Physician Routine Consulting Provider: Bill Banks Reason/Comments: medical management Do you want consulting provider notified?: Yes Primary care physician: Bill Banks - Discharge Diagnosis(es) (1) Primary localized osteoarthritis of right hip Current Visit: Yes Status: Acute (2) Status post total replacement of right hip Current Visit: Yes Status: Acute Hospital Course: This is a 77-year-old male with known history of degenerative arthritis of the right hip. The patient presented for evaluation as an outpatient. After discussion and consideration patient elects to proceed with total hip arthroplasty. The patient is seen preoperatively by Dr. Parker and medically cleared for surgery by their primary care physician. Patient is admitted to [facility] on 02/20/2022 for total hip arthroplasty. The procedure is performed without complication or sequelae. The patient is doing well postoperatively. Labs and vital signs are stable on day of discharge. On day of discharge patient's hip incision is healing well. There is minimal erythema. There is no drainage noted at this time. There is minimal soft tissue swelling to the hip and thigh. Patient has full foot and ankle motion without difficulty or pain. Calf is soft and nontender to palpation. Neurovascular status to the right lower extremity is intact. Patient is discharged to rehab in good condition. Please see med rec for accurate list of home medications. Plan - Discharge Summary Discharge Rx Participant: No New Discharge Prescriptions: New Sennosides [Senokot] 2 tab PO DAILY PRN #60 tablet PRN Reason: Constipation Ondansetron Odt [Zofran Odt] 1 tab PO Q8HR PRN #10 tab PRN Reason: Nausea Aspirin 325 mg PO BID #60 tab HYDROcodone/APAP 7.5-325MG [[place] 7.5-325] 1 - 2 tab PO Q6H PRN #32 tab PRN Reason: Pain No Action traMADol HCL [Ultram] 50 mg PO BID Atorvastatin Calcium [Lipitor] 40 mg PO HS prednisoLONE ACETATE 1% OPHTH [Pred Forte 1%] 1 drop LEFT EYE BID Naproxen Sodium [Aleve] 220 mg PO BID PRN PRN Reason: Pain Acetaminophen/Diphenhydramine [Tylenol PM 500-25mg] 1 tab PO HS PRN PRN Reason: Insomnia Naproxen Sodium [Aleve] 660 mg PO DAILY metFORMIN HCL 1,000 mg PO BID Lisinopril-Hctz 10-12.5 mg [Zestoretic 10-12.5] 1 tab PO DAILY Aspirin 81 mg PO DAILY Metoprolol Succinate (ER) [Toprol Xl] 12.5 mg PO HS Discharge Medication List Atorvastatin Calcium [Lipitor] 40 mg PO HS 12/29/21 [History] Lisinopril-Hctz 10-12.5 mg [Zestoretic 10-12.5] 1 tab PO DAILY 12/29/21 [History] Naproxen Sodium [Aleve] 660 mg PO DAILY 12/29/21 [History] metFORMIN HCL 1,000 mg PO BID 12/29/21 [History] prednisoLONE ACETATE 1% OPHTH [Pred Forte 1%] 1 drop LEFT EYE BID 12/29/21 [History] traMADol HCL [Ultram] 50 mg PO BID 12/29/21 [History] Acetaminophen/Diphenhydramine [Tylenol PM 500-25mg] 1 tab PO HS PRN 01/04/22 [History] Naproxen Sodium [Aleve] 220 mg PO BID PRN 01/04/22 [History] Aspirin 81 mg PO DAILY 01/12/22 [History] Metoprolol Succinate (ER) [Toprol Xl] 12.5 mg PO HS 02/16/22 [History] Aspirin 325 mg PO BID #60 tab 02/20/22 [Rx] Ondansetron Odt [Zofran Odt] 1 tab PO Q8HR PRN #10 tab 02/20/22 [Rx] Sennosides [Senokot] 2 tab PO DAILY PRN #60 tablet 02/20/22 [Rx] HYDROcodone/APAP 7.5-325MG [[place] 7.5-325] 1 - 2 tab PO Q6H PRN #32 tab 02/22/22 [Rx] Follow up Appointment(s)/Referral(s): Myke Juan, [NON-STAFF] - As Needed Michael Parker DO [Doctor of Osteopathic Medicine] - 03/08/22 1:00 pm Activity/Diet/Wound Care/Special Instructions: Weightbearing as tolerated with walker. Leave dressing intact. Dressing may be removed by home care nurse or by patient in 7 days. Then change dressing twice daily until follow up. May shower with initial dressing intact and after removal. If dressing become saturated, please remove. Please take aspirin 325mg twice daily for 30 days to prevent blood clots. Recommend use of compression stockings daily until follow up to help prevent swelling and blood clots. May remove at night before sleeping. Please follow-up with [facility] in 2 weeks and call with any questions or concerns, .
[2022-02-23 11:34] LABS: Glucose,Whole Blood 199 mg/dL (75-99)
[2022-02-23 14:21] VITALS: BP 117/64; PULSE 87; TEMP 98.7
== END 2022-02-23 15:20 ==
LOC: OR 10:05 → 4SSUR 12:40 → OR 02-22 13:07 → 4SSUR 02-22 13:38
PROVIDERS: ADMIT Orthopaedic Surgery; ATTEND Orthopaedic Surgery
DX: M16.11 Unilateral primary osteoarthritis, right hip (principal); M25.751 Osteophyte, right hip; I11.9 Hypertensive heart disease without heart failure; E11.9 Type 2 diabetes mellitus without complications; W19.XXXA Unspecified fall, initial encounter; R94.39 Abnormal result of other cardiovascular function study; I25.10 Atherosclerotic heart disease of native coronary artery without angina pectoris; E78.5 Hyperlipidemia, unspecified; Z98.49 Cataract extraction status, unspecified eye; R26.81 Unsteadiness on feet; H35.30 Unspecified macular degeneration; Z97.3 Presence of spectacles and contact lenses; Z96.642 Presence of left artificial hip joint; Z79.82 Long term (current) use of aspirin; Z79.84 Long term (current) use of oral hypoglycemic drugs; Z79.899 Other long term (current) drug therapy; Z88.0 Allergy status to penicillin
CPT/HCPCS: 27130; 97116; 97530 ×2; 97161; 97535; 97166; 86900; 86901; 85025 ×2; 86850; 88300; 73562; 73501; 73502; G0378 ×2; C1776; J2250; J1100; J0690 ×3; J2405; J3010; J2795; J2370; J2704; J1170

== ENCOUNTER → 2022-05-24 | Outpatient (CLI) | payer MEDICARE ==
[2022-05-24 22:54] LABS: HCT 37.5 % (39.6-50.0); HGB 11.8 g/dL (13.0-17.0); MCH 33.5 pg (27.0-32.0); MCHC 31.5 g/dL (32.0-37.0); MCV 106.5 fL (80.0-97.0); Mean Platelet Volume 9.3 fL (9.5-12.2); NRBC Per 100 WBC 0 /100 WBCS (0.0-0.0); Platelet Count 260 X 10*3/uL (140-440); RBC 3.52 X 10*6/uL (4.40-5.60); RDW 13.3 % (11.5-14.5)
[2022-05-25 00:43] LABS: African American GFR (CKD) 56.6 (60.0-200.0); Anion Gap 9.6 mmol/L (10.00-18.00); Blood Urea Nitrogen 28.5 mg/dL (9.0-27.0); Carbon Dioxide 28.4 mmol/L (20.0-27.5); Non-African American GFR(CKD) 48.8 (60.0-200.0); Potassium 4.7 mmol/L (3.5-5.5)
== END | disposition home or self-care (01) ==
LOC: LABPAT 15:03
PROVIDERS: ATTEND Internal Medicine Interventional Cardiology
DX: Z01.812 Encounter for preprocedural laboratory examination (principal); R06.02 Shortness of breath
CPT/HCPCS: 80051; 82565; 84520; 85027

== ENCOUNTER 2022-05-29 06:40 | Day surgery (SDC) | payer MEDICARE ==
[~2022-05-29 06:40] MED LIST changes: -ACETAMINOPHEN TAB 500 MG TAB PO PRN; +ALPRAZolam 0.25 MG TAB PO PRN; +ALPRAZolam 0.5 MG TAB PO PRN; -DEXAMETHASONE SOD PHOSPHATE 4 MG/ML 1 ML VIAL IV ONE; -GABAPENTIN 300 MG CAP PO PRN; +HEPARIN SODIUM,PORCINE 10,000 UNIT in SODIUM CHLORIDE 0.9% 1,000 ML IRRIGATION PRN; -HYDROmorphone 0.5 MG/0.5 ML SYRINGE IVP PRN; -MELOXICAM 7.5 MG TAB PO PRN; -MIDAZOLAM 2 MG/2 ML VIAL IV PRN; +NITROGLYCERIN SL TABS 0.4 MG TAB SUBLINGUAL PRN; -ONDANSETRON 4 MG/2 ML VIAL IVP ONE; +SODIUM CHLORIDE 0.9% 1,000 ML in EMPTY BAG 1 BAG IV SCH; -TRANEXAMIC ACID IN NACL,ISO-OS 1,000 MG in SALINE 1 100ML.BAG IVPB PRN
[2022-05-29] MEDS ORDERED: ATORVASTATIN 80 MG TAB PO ONE (07:00)
[2022-05-29] MEDS ORDERED: HEPARIN SODIUM,PORCINE 2,500 UNIT in SODIUM CHLORIDE 0.9% 250 ML IRRIGATION PRN (07:00)
[2022-05-29] MEDS ORDERED: ASPIRIN 325 MG TAB PO ONE (07:00)
[2022-05-29 07:20] LABS: Glucose,Whole Blood 153 mg/dL (70-110)
[2022-05-29 07:25] VITALS: TEMP 99.1
[2022-05-29] MEDS ORDERED: VERAPAMIL 2.5 MG/ML 2 ML AMP ONE (08:14)
[2022-05-29] MEDS ORDERED: HEPARIN SODIUM 1,000 UN/ML (10ML VL) ONE (09:57)
[2022-05-29] MEDS ORDERED: MIDAZOLAM 2 MG/2 ML VIAL IV ONE (10:07)
[2022-05-29] MEDS ORDERED: LIDOCAINE 1% INJ 10MG/ML (5 ML VIAL-PF) SQ ONE (10:09)
[2022-05-29] MEDS ORDERED: VERAPAMIL SYRINGE (5 MG/10 ML) INTRAARTER ONE (10:11)
[2022-05-29] MEDS ORDERED: IOPAMIDOL-370 125ML BTL INJ ONE (10:24)
[2022-05-29] MEDS ORDERED: RX INFO: IV CONTRAST WAS GIVEN 1 EACH MISC MISCELLANE PRN (10:34)
--- NOTE | 2022-05-29 10:38 | P.PCN ---
Date of Procedure: 05/29/22 Operative Findings: CARDIAC CATHETERIZATION PERFORMING PHYSICIAN: Larry Rogers MD, RPVI PROCEDURE PERFORMED: 1. Selective right and left coronary angiogram 2. Left heart catheterization INDICATION: Chest discomfort and shortness of breath concerning for angina in this 77-year-old gentleman was diabetes and hypertension and dyslipidemia. COMPLICATION: None APPROACH: Right radial artery LEVEL OF SEDATION: Moderate with a sedation length of 17 minutes PROCEDURE DESCRIPTION: After obtaining an informed consent, the patient was brought to cardiac skilled labor. Local anesthesia was performed using lidocaine subcutaneously. The right radial artery was cannulated using Seldinger technique, the guidewire passed easily, following that we advanced a 5-Mosotho sheath dilator assembly, the wire and dilator were removed and sheath was flushed. Following that, 2 mg of verapamil along with 5000 unit heparin were given. Selective right and left coronary angiogram using a 6-Mosotho JR4 and JL 3.5 catheters. Following that we did left heart catheterization using 6-Mosotho pigtail catheter. The procedure was completed there was no complication. SELECTIVE CORONARY ANGIOGRAM: The right coronary artery: Large caliber vessel and a dominant vessel. The RCA is calcified was mild disease proximally. Left main: Calcified was mild disease only. Bifurcates into LCx and LAD The left circumflex: Large caliber vessel nondominant vessel. The LCx is angiographically normal. It gives rises into first and second obtuse marginal branches and both appeared to be angiographically normal. The left anterior descending artery: Large caliber vessel. Its calcified. The proximal LAD has mild disease only. Gives rises into the first diagonal branch which has mild disease only. The mid LAD appeared to be angiographically normal and gives rise into the second diagonal branch which has a lesion appeared to be in the range of 60%. It's a small caliber vessel. HEMODYNAMICS: The LVEDP was about 4 mmHg was no significant gradient across aortic valve CONCLUSION: 1. Calcified right and left coronary system 2. Intermediate lesion involving a small second diagonal branch POSTPROCEDURE MANAGEMENT: Medical treatment and follow-up with the patient
[2022-05-29] MEDS ORDERED: SODIUM CHLORIDE 0.9% 1,000 ML IV SCH (10:45)
[2022-05-29 16:46] VITALS: BP 131/63; PULSE 60; RESP 16
== END 2022-05-29 14:07 | disposition home or self-care (01) ==
LOC: CATHCVL 06:40
PROVIDERS: ATTEND Internal Medicine Interventional Cardiology
DX: I25.110 Atherosclerotic heart disease of native coronary artery with unstable angina pectoris (principal); I25.84 Coronary atherosclerosis due to calcified coronary lesion; R94.39 Abnormal result of other cardiovascular function study; I35.0 Nonrheumatic aortic (valve) stenosis; I10 Essential (primary) hypertension; E78.00 Pure hypercholesterolemia, unspecified; Z20.822 Contact with and (suspected) exposure to COVID-19; E78.5 Hyperlipidemia, unspecified; E11.9 Type 2 diabetes mellitus without complications; Z79.84 Long term (current) use of oral hypoglycemic drugs; Z79.82 Long term (current) use of aspirin; Z79.899 Other long term (current) drug therapy; Z88.0 Allergy status to penicillin
CPT/HCPCS: 93458; 87635; C1769; C1894; J2250; J2001; J1644; Q9967

== ENCOUNTER 2024-08-07 12:41 | Inpatient (IN) | payer MEDICARE ==
[2024-08-07] MEDS ORDERED: VANCOMYCIN IV PER PHARMACY 1 EACH MISC MISCELLANE PRN (13:24)
--- NOTE | 2024-08-07 13:33 | ED ---
General Adult HPI - General Chief complaint: Recheck/Abnormal Lab/Rx Stated complaint: Cellulitis left leg Time Seen by Provider: 08/07/24 13:00 Source: patient, RN notes reviewed, old records reviewed Mode of arrival: ambulatory Limitations: no limitations - History of Present Illness Initial comments: This is a 79-year-old male who presents to the emergency department stating he has an infected toenail on the left foot and now his whole leg has become much more red and tender. Patient [place] any fever chills. Patient states besides the pain to the leg and the redness he feels fine. Patient is a diabetic. Patient was at the doctor's office yesterday and they recommended he come in today. Denies any chest pain or difficulty breathing. Patient has any recent injury or trauma. - Related Data Home Medications Medication Instructions Recorded Confirmed Atorvastatin Calcium [Lipitor] 10 mg PO HS 12/29/21 08/07/24 Metoprolol Succinate (ER) [Toprol 25 mg PO HS 02/16/22 08/07/24 XL] Apixaban [Eliquis] 5 mg PO BID 08/07/24 08/07/24 Dapagliflozin Propanediol [Farxiga] 10 mg PO DAILY 08/07/24 08/07/24 Fluticasone/Umeclidin/Vilanter 1 puff INHALATION RT-DAILY 08/07/24 08/07/24 [Trelegy Ellipta 200-62.5-25] Furosemide [Lasix] 20 mg PO DAILY 08/07/24 08/07/24 Insulin Aspart [NovoLOG Flexpen] 7 units SQ BID 08/07/24 08/07/24 Insulin Glargine,Hum.rec.anlog 20 units SQ DAILY 08/07/24 08/07/24 [Lantus Solostar Pen] Isosorbide Mononitrate ER [Imdur] 30 mg PO DAILY 08/07/24 08/07/24 Loratadine 10 mg PO DAILY 08/07/24 08/07/24 Memantine [Namenda] 5 mg PO DAILY 08/07/24 08/07/24 Montelukast [Singulair] 10 mg PO DAILY 08/07/24 08/07/24 Sennosides [Senokot] 8.6 mg PO BID 08/07/24 08/07/24 Tamsulosin [Flomax] 0.4 mg PO DAILY 08/07/24 08/07/24 lisinopriL [Zestril] 10 mg PO DAILY 08/07/24 08/07/24 Previous Rx's Medication Instructions Recorded FLUoxetine HCL [PROzac] 10 mg PO DAILY cap 02/23/22 Allergies Allergy/AdvReac Type Severity Reaction Status Date / Time Penicillins Allergy Rash/Hives Verified 08/07/24 15:51 Review of Systems ROS Statement: Those systems with pertinent positive or pertinent negative responses have been documented in the HPI. ROS Other: All systems not noted in ROS Statement are negative. Past Medical History Past Medical History: Diabetes Mellitus Additional Past Medical History / Comment(s): recent adm. for low BS-meds adjusted, hip replacement surg. cancelled recently due to abn. stress test History of Any Multi-Drug Resistant Organisms: None Reported Past Surgical History: Joint Replacement, Orthopedic Surgery Additional Past Surgical History / Comment(s): CATARACTS, ORIF left hip & then replacement Past Anesthesia/Blood Transfusion Reactions: No Reported Reaction Past Psychological History: Anxiety, Depression Smoking Status: Never smoker Past Alcohol Use History: None Reported Past Drug Use History: None Reported - Past Family History Mother Family Medical History: No Reported History Father Family Medical History: Congestive Heart Failure (CHF) General Exam - General Exam Comments Initial Comments: GENERAL: Patient is well-developed and well-nourished. Patient is nontoxic and well- hydrated and is in no acute distress. ENT: Neck is soft and supple. No significant lymphadenopathy is noted. Oropharynx is clear. Moist mucous membranes. Neck has full range of motion without eliciting any pain. EYES: The sclera were anicteric and conjunctiva were pink and moist. Extraocular movements were intact and pupils were equal round and reactive to light. Eyelids were unremarkable. PULMONARY: Unlabored respirations. Good breath sounds bilaterally. No audible rales rhonchi or wheezing was noted. CARDIOVASCULAR: There is a regular rate and rhythm without any murmurs gallops or rubs. ABDOMEN: Soft and nontender with normal bowel sounds. SKIN: Skin is clear with no lesions or rashes and otherwise unremarkable. NEUROLOGIC: Patient is alert and oriented x3. Cranial nerves II through XII are grossly intact. Motor and sensory are also intact. Normal speech, volume and content. Symmetrical smile. MUSCULOSKELETAL: Left lower anterior leg is red and warm. I did not find any open wound on the leg or foot. Where it is red it is tender there is no posterior tenderness LYMPHATICS: No significant lymphadenopathy is noted PSYCHIATRIC: Normal psychiatric evaluation. Limitations: no limitations Course Vital Signs 08/07/24 08/07/24 12:48 14:29 Temperature 98.1 F Pulse Rate 77 74 Respiratory 18 18 Rate Blood Pressure 118/70 134/81 O2 Sat by Pulse 96 97 Oximetry Medical Decision Making - Medical Decision Making Was pt. sent in by a medical professional or institution (, SIRI, POLE CLASSIFIER, urgent care, hospital, or jail...) When possible be specific @ -Dr. Banks sent the patient Did you speak to anyone other than the patient for history (EMS, parent, family, police, friend...)? What history was obtained from this source @ -No Did you review nursing and triage notes (agree or disagree)? Why? @ -I reviewed and agree with nursing and triage notes Were old charts reviewed (outside hosp., previous admission, EMS record, old EKG, old radiological studies, urgent care reports/EKG's, jail records)? Report findings @ -No old charts were reviewed Differential Diagnosis? @ -Cellulitis, osteomyelitis, contact dermatitis, DVT, this is not an all- inclusive list EKG interpreted by me (3pts min.). @ -As above X-rays interpreted by me (1pt min.). @ -None done CT interpreted by me (1pt min.). @ -None done U/S interpreted by me (1pt. min.). @ -None done What testing was considered but not performed or refused? (CT, X-rays, U/S, labs)? Why? @ -None What meds were considered but not given or refused? Why? @ -None Did you discuss the management of the patient with other professionals (professionals i.e. , SIRI, POLE CLASSIFIER, lab, RT, psych nurse, bilingual social worker, field radio operator, te acher, security officers and guards, rn field case manager)? Give summary @ -Dr. Banks wanted the patient admitted I admitted the patient consulted Dr. Monterroso Was smoking cessation discussed for >3mins.? @ -No Was critical care preformed (if so, how long)? @ -No Were there social determinants of health that impacted care today? How? (Homelessness, low income, unemployed, alcoholism, drug addiction, transportation, low edu. Level, literacy, decrease access to med. care, fpc, rehab)? @ -No Was there de-escalation of care discussed even if they declined (Discuss DNR or withdrawal of care, Hospice)? DNR status @ -No What co-morbidities impacted this encounter? (DM, HTN, Smoking, COPD, CAD, Cancer, CVA, ARF, Chemo, Hep., AIDS, mental health diagnosis, sleep apnea, morbid obesity)? @ -None Was patient admitted / discharged? Hospital course, mention meds given and route, prescriptions, significant lab abnormalities, going to OR and other pertinent info. @ -Patient was started on antibiotic vancomycin and Rocephin as well as Lasix. Undiagnosed new problem with uncertain prognosis? @ -No Drug Therapy requiring intensive monitoring for toxicity (Heparin, Nitro, Insulin, Cardizem)? @ -No Were any procedures done? @ -No Diagnosis/symptom? @ -Cellulitis leg Acute, or Chronic, or Acute on Chronic? @ -Acute Uncomplicated (without systemic symptoms) or Complicated (systemic symptoms)? @ -Comp Side effects of treatment? @ -No Exacerbation, Progression, or Severe Exacerbation? @ -No Poses a threat to life or bodily function? How? (Chest pain, [place], [place], pneumonia, PE, COPD, DKA, ARF, appy, cholecystitis, CVA, Diverticulitis, Homicidal, Suicidal, threat to staff... and all critical care pts) @ -Yes this could turn into sepsis and endorgan dysfunction Diagnosis/symptom? @ -Bilateral pedal Acute, or Chronic, or Acute on Chronic? @ -Acute Uncomplicated (without systemic symptoms) or Complicated (systemic symptoms)? @ -Complicated Side effects of treatment? @ -None Exacerbation, Progression, or Severe Exacerbation] @ -No Poses a threat to life or bodily function? @ -No - Lab Data Result diagrams: 08/07/24 14:24 08/07/24 14:24 Lab Results 08/07/24 08/07/24 08/07/24 Range/Units 14:24 14:24 14:24 WBC 7.1 (3.8-10.6) k/uL RBC 4.25 L (4.30-5.90) m/uL Hgb 13.4 (13.0-17.5) gm/dL Hct 44.6 (39.0-53.0) % MCV 105.0 H (80.0-100.0) fL MCH 31.5 (25.0-35.0) pg MCHC 30.0 L (31.0-37.0) g/dL RDW 14.0 (11.5-15.5) % Plt Count 378 (150-450) k/uL MPV 7.0 Neutrophils % 77 % Lymphocytes % 10 % Monocytes % 7 % Eosinophils % 3 % Basophils % 0 % Neutrophils # 5.4 (1.3-7.7) k/uL Lymphocytes # 0.7 L (1.0-4.8) k/uL Monocytes # 0.5 (0-1.0) k/uL Eosinophils # 0.2 (0-0.7) k/uL Basophils # 0.0 (0-0.2) k/uL Hypochromasia Moderate Macrocytosis Moderate Sodium 139 (137-145) mmol/L Potassium 4.2 (3.5-5.1) mmol/L Chloride 106 (98-107) mmol/L Carbon Dioxide 26 (22-30) mmol/L Anion Gap 7 mmol/L BUN 27 H (9-20) mg/dL Creatinine 1.53 H (0.66-1.25) mg/dL Est GFR (CKD-EPI)AfAm 50 (>60 ml/min/1.73 sqM) Est GFR (CKD-EPI)NonAf 43 (>60 ml/min/1.73 sqM) Glucose 104 H (74-99) mg/dL Plasma Lactic Acid Herbert 1.0 (0.7-2.0) mmol/L Calcium 8.5 (8.4-10.2) mg/dL Total Bilirubin 0.6 (0.2-1.3) mg/dL AST 29 (17-59) U/L ALT 34 (4-49) U/L Alkaline Phosphatase 88 (38-126) U/L Total Protein 5.7 L (6.3-8.2) g/dL Albumin 3.5 (3.5-5.0) g/dL Disposition Clinical Impression: Cellulitis, leg, Pedal edema Disposition: ADMITTED IP TO THIS HOSP Referrals: Bill Banks MD [Primary Care Provider] - 1-2 days Time of Disposition: 16:54
[2024-08-07] MEDS: cefTRIAXone IN SWFI 1,000 MG/10 ML SYRINGE IVP STA ×2 (14:32→14:39)
[2024-08-07 14:35] LABS: Basophils % (A) 0 %; Eosinophils # (A) 0.2 k/uL (0-0.7); Eosinophils % (A) 3 %; HCT 44.6 % (39.0-53.0); HGB 13.4 gm/dL (13.0-17.5); Hypochromasia Moderate; Lymphocytes # (A) 0.7 k/uL (1.0-4.8); Lymphocytes % (A) 10 %; MCH 31.5 pg (25.0-35.0); Macrocytosis Moderate; Monocytes # (A) 0.5 k/uL (0-1.0); Monocytes % (A) 7 %; Neutrophils # (A) 5.4 k/uL (1.3-7.7); Neutrophils % (A) 77 %; Platelet Count 378 k/uL (150-450); RBC 4.25 m/uL (4.30-5.90); WBC 7.1 k/uL (3.8-10.6)
[2024-08-07 14:59] LABS: ALT 34 U/L (4-49); AST 29 U/L (17-59); African American GFR (CKD) 50 (>60 ml/min/1.73 sqM); Albumin 3.5 g/dL (3.5-5.0); Alkaline Phosphatase 88 U/L (38-126); Anion Gap 7 mmol/L; Blood Urea Nitrogen 27 mg/dL (9-20); Calcium 8.5 mg/dL (8.4-10.2); Carbon Dioxide 26 mmol/L (22-30); Chloride 106 mmol/L (98-107); Glucose 104 mg/dL (74-99); Non-African American GFR(CKD) 43 (>60 ml/min/1.73 sqM); Potassium 4.2 mmol/L (3.5-5.1); Sodium 139 mmol/L (137-145); Total Bilirubin 0.6 mg/dL (0.2-1.3); Total Protein 5.7 g/dL (6.3-8.2)
[2024-08-07] MEDS: VANCOMYCIN 1,500 MG in SODIUM CHLORIDE 0.9% 500 ML 500 ML IVPB ONE (15:42)
[2024-08-07] MEDS ORDERED: DEXTROSE 50% SYRINGE 50 ML IVP PRN ×2 (16:59)
[2024-08-07 17:21] LABS: Glucose,Whole Blood 155 mg/dL (70-110)
[2024-08-07] MEDS: INSULIN ASPART (NovoLOG) 100 UNIT/ML VIAL SQ SCH (17:52)
[2024-08-07] MEDS: FUROSEMIDE 10 MG/ML 4 ML VIAL IV STA (18:46)
[2024-08-07] MEDS ORDERED: FUROSEMIDE 20 MG TAB PO SCH (22:00)
[2024-08-07 22:13] LABS: Glucose,Whole Blood 89 mg/dL (70-110)
[2024-08-07] MEDS: APIXABAN 5 MG TAB PO SCH (22:39)
[2024-08-07] MEDS: METOPROLOL SUCCINATE (ER) 25 MG TAB.ER.24H PO SCH (22:39)
[2024-08-07] MEDS: SENNOSIDES 8.6 MG TAB PO SCH (22:39)
[2024-08-07] MEDS: ATORVASTATIN 10 MG TAB PO SCH (22:40)
[2024-08-07] MEDS: FUROSEMIDE 10 MG/ML 4 ML VIAL IV SCH (22:40)
--- NOTE | 2024-08-08 03:50 | CT ---
EXAM: CT Chest Without Intravenous Contrast CLINICAL HISTORY: CT Reason: pleural effusion TECHNIQUE: Axial computed tomography images of the chest without intravenous contrast. CTDI is 13 mGy and DLP is 587 mGy-cm. This CT exam was performed using one or more of the following dose reduction techniques: automated exposure control, adjustment of the mA and/or kV according to patient size, and/or use of iterative reconstruction technique. COMPARISON: Chest x-ray from December 27, 2021 FINDINGS: Lungs: Small amount of scattered fine linear scarring or atelectasis in both lung bases. No acute appearing airspace infiltrate, pneumothorax, or pleural effusion is seen. No mass. Pleural space: See above. Heart: The heart is mildly enlarged. There is severe coronary and mitral calcification. No pericardial effusion is seen. Bones/joints: Mild to moderate multilevel degenerative changes throughout the spine. No acute fracture or destructive bone lesion is seen. No dislocation. Soft tissues: Unremarkable. Vasculature: The thoracic aorta is mildly calcified but nondilated. This is a noncontrast study. Lymph nodes: Unremarkable. No enlarged lymph nodes. IMPRESSION: 1. Small amount of scattered fine linear scarring or atelectasis in both lung bases. No acute appearing airspace infiltrate, pneumothorax, or pleural effusion is seen. 2. The heart is mildly enlarged. There is severe coronary and mitral calcification. No pericardial effusion is seen.
[2024-08-08 04:01] LABS: ALT 34 U/L (4-49); AST 26 U/L (17-59); African American GFR (CKD) 49 (>60 ml/min/1.73 sqM); Albumin 3.3 g/dL (3.5-5.0); Albumin/Globulin Ratio 1.4; Alkaline Phosphatase 106 U/L (38-126); Anion Gap 6 mmol/L; Blood Urea Nitrogen 28 mg/dL (9-20); Calcium 8.6 mg/dL (8.4-10.2); Carbon Dioxide 24 mmol/L (22-30); Chloride 108 mmol/L (98-107); Globulin 2.3 g/dL; Glucose 119 mg/dL (74-99); Non-African American GFR(CKD) 42 (>60 ml/min/1.73 sqM); Potassium 3.8 mmol/L (3.5-5.1); Sodium 138 mmol/L (137-145); Total Bilirubin 0.7 mg/dL (0.2-1.3); Total Protein 5.6 g/dL (6.3-8.2)
[2024-08-08 06:31] LABS: Glucose,Whole Blood 110 mg/dL (70-110)
[2024-08-08] MEDS ORDERED: NON FORMULARY DRUG (Fluticasone/Umeclidin/Vilanter [Trelegy Ellipta 200-62.5-25] 1 EACH Bl INHALATION SCH (08:00)
[2024-08-08] MEDS: MEMANTINE 5 MG TAB PO SCH (08:22)
[2024-08-08] MEDS: TAMSULOSIN 0.4 MG CAP.ER.24H PO SCH (08:22)
[2024-08-08] MEDS: ISOSORBIDE MONONITRATE ER 30 MG TAB.ER.24H PO SCH (08:22)
[2024-08-08] MEDS: lisinopriL 10 MG TAB PO SCH (08:22)
[2024-08-08] MEDS: DAPAGLIFLOZIN PROPANEDIOL 10 MG TABLET PO SCH (08:22)
[2024-08-08] MEDS: MONTELUKAST 10 MG TAB PO SCH (08:22)
[2024-08-08] MEDS: SYMBICORT 160-4.5 MCG INHALER INHALATION SCH (08:27)
[2024-08-08] MEDS: IPRATROPIUM 0.5 MG/2.5 ML NEBU INHALATION SCH (08:27)
[2024-08-08 09:28] LABS: Basophils # (A) 0.07 X 10*3/uL (0.00-0.10); Basophils % (A) 0.9 %; Eosinophils # (A) 0.28 X 10*3/uL (0.04-0.35); Eosinophils % (A) 3.8 %; HCT 43.4 % (39.6-50.0); HGB 13.8 g/dL (13.0-17.0); Lymphocytes # (A) 0.55 X 10*3/uL (0.90-5.00); Lymphocytes % (A) 7.5 %; MCH 32.6 pg (27.0-32.0); MCHC 31.8 g/dL (32.0-37.0); MCV 102.6 FL (80.0-97.0); Mean Platelet Volume 8.6 FL (9.5-12.2); Monocytes # (A) 0.96 X 10*3/uL (0.20-1.00); NRBC Per 100 WBC 0 X 10*3/uL (0.00-0.01); Neutrophils # (A) 5.44 X 10*3/uL (1.80-7.70); Neutrophils % (A) 73.7 %; Platelet Count 348 X 10*3/uL (140-440); RBC 4.23 X 10*6/uL (4.40-5.60); RDW 14.6 % (11.5-14.5); WBC 7.38 X 10*3/uL (4.50-10.00)
[2024-08-08 12:04] LABS: Glucose,Whole Blood 261 mg/dL (70-110)
[2024-08-08] MEDS: FLUoxetine HCL 10 MG CAP PO SCH (12:30)
[2024-08-08 12:44] VITALS: BMI 31.8
--- NOTE | 2024-08-08 12:57 | CA ---
Transthoracic Echo Report Name: Nathan Juan Age: 79 Gender: M : 1945 Exam Date: 08/08/2024 09:36 Exam Location: [facility] Ht (in): 67 Wt (lb): 203 Ordering Physician: Bill Banks MD Attending/Referring Phys: Tier Truck Driver Radha Lira RDCS Procedure CPT: Indications: chf Cardiac Hx: Technical Quality: Technically difficult study Contrast 1: Definity Total Dose (mL): 2 Contrast 2: Total Dose (mL): MEASUREMENTS (Male / Female) Normal Values 2D ECHO LV Diastolic Diameter PLAX 4.0 cm 4.2 - 5.9 / 3.9 - 5.3 cm LV Systolic Diameter PLAX 3.0 cm IVS Diastolic Thickness 1.4 cm 0.6 - 1.0 / 0.6 - 0.9 cm LVPW Diastolic Thickness 1.6 cm 0.6 - 1.0 / 0.6 - 0.9 cm LV Relative Wall Thickness 0.8 RV Internal Dim ED PLAX 4.0 cm LVOT Diameter 1.9 cm LA Volume 62.5 cm??? 18 - 58 / 22 - 52 cm??? LA Volume Index 29.5 cm???/m??? 16 - 28 cm???/m??? M-MODE Aortic Root Diameter MM 3.3 cm LA Systolic Diameter MM 3.9 cm LA Ao Ratio MM 1.2 AV Cusp Separation MM 1.1 cm DOPPLER AV Peak Velocity 148.2 cm/s AV Peak Gradient 8.8 mmHg AV Mean Velocity 100.0 cm/s AV Mean Gradient 4.6 mmHg AV Velocity Time Integral 26.3 cm LVOT Peak Velocity 78.2 cm/s LVOT Peak Gradient 2.4 mmHg LVOT Velocity Time Integral 14.6 cm LVOT Stroke Volume 43.2 cm??? LVOT Stroke Volume Index 21.3 ml/m??? LVOT Cardiac Index 1634.6 cm???/min???m??? AV Area Cont Eq vti 1.6 cm??? AV Area Cont Eq pk 1.6 cm??? MV Area PHT 3.4 cm??? Mitral E Point Velocity 124.8 cm/s Mitral A Point Velocity 0.4 cm/s Mitral E to A Ratio 297.4 MV Deceleration Time 225.3 ms MV E' Velocity 7.6 cm/s Mitral E to MV E' Ratio 16.3 TR Peak Velocity 258.0 cm/s TR Peak Gradient 26.6 mmHg Right Ventricular Systolic Press 30.9 mmHg FINDINGS Left Ventricle Moderately increased left ventricular wall thickness.left ventricular cavity size normal. Normal left ventricular systolic function with no obvious regional wall motion abnormalities. Left ventricular ejection fraction is estimated at 55-60 %. Grade 1 diastolic dysfunction. Right Ventricle Mild right ventricular dilatation. Right ventricular systolic pressure within normal limits. Right Atrium Normal right atrial size. Left Atrium Mildly increased left atrial volume. Mitral Valve Structurally normal mitral valve. No mitral stenosis. Mitral valve thickened. Mild mitral annular calcification. Mild mitral regurgitation. Aortic Valve Trileaflet aortic valve. No aortic stenosis. No aortic regurgitation. Diffuse thickening (sclerosis) of the aortic valve cusps without reduced excursion. Tricuspid Valve Structurally normal tricuspid valve. Mild tricuspid regurgitation. Pulmonic Valve Structurally normal pulmonic valve. Pericardium No pericardial effusion. Aorta Normal size aortic root and proximal ascending aorta. CONCLUSIONS Diagnosis congestive heart failure Impression LVH with preserved systolic function Aortic sclerosis Previewed by: Dr. Elkin Vaughn MD (Electronically Signed) Final Date: 08 August 2024 12:56
--- NOTE | 2024-08-08 15:59 | US ---
EXAMINATION TYPE: US venous doppler duplex LE LT DATE OF EXAM: 08/08/2024 3:15 PM COMPARISON: NONE CLINICAL INDICATION: Male, 79 years old with history of Swelling; Pain, Swelling TECHNIQUE: The lower extremity deep venous system is examined utilizing real time linear array sonog samira with graded compression, color doppler sonography, and spectral doppler. SIDE PERFORMED: Left FINDINGS: VESSELS IMAGED: Common Femoral Vein Deep Femoral Vein Greater Saphenous Vein * Femoral Vein Popliteal Vein Small Saphenous Vein * Proximal Calf Veins (* superficial vessels) Left Leg: Negative for DVT IMPRESSION: No evidence for DVT within the left lower extremity imaged from the groin to the upper calf. [facility], , 08/08/2024 3:57 PM
[2024-08-08] MEDS ORDERED: VANCOMYCIN 1,500 MG in SODIUM CHLORIDE 0.9% 500 ML 500 ML IVPB SCH (16:00)
[2024-08-08 16:46] LABS: Glucose,Whole Blood 175 mg/dL (70-110)
[2024-08-08 21:12] LABS: Glucose,Whole Blood 85 mg/dL (70-110)
--- NOTE | 2024-08-08 22:34 | P.CONS ---
History of Present Illness - Reason for Consult Consult date: 08/08/24 Cellulitis leg Requesting physician: Doyle Rodriguez - Chief Complaint Left leg swelling redness x days - History of Present Illness Patient is a 79-year-old male with a past medical history significant for diabetes mellitus osteoarthritis anxiety depression, patient has been brought into the hospital yesterday concerning for increasing swelling and redness to the left lower extremity and apparently started with infected toenail patient symptom has been going on for the last 2 to 3 days patient denies any history of any trauma patient denies high-grade fever or any chills mild discomfort to the leg especially when it is touched currently do not have an o pen wound or any drainage on presentation to the hospital patient was afebrile and no fever have been called subsequently patient was not tachycardic hypotensive or hypoxic patient did have a white count of 7.1 with a mild left shift creatinine is 1.57 liver enzymes are normal patient did have a CT of the chest did not show any consolidation he was started on vancomycin and Rocephin infectious disease was consulted for further management of antibiotic therapy Review of Systems Positive point and negatives has been mentioned in the HPI, complete review of systems was performed and all other systems are negative Past Medical History Past Medical History: Diabetes Mellitus Additional Past Medical History / Comment(s): recent adm. for low BS-meds adjusted, hip replacement surg. cancelled recently due to abn. stress test History of Any Multi-Drug Resistant Organisms: None Reported Past Surgical History: Joint Replacement, Orthopedic Surgery Additional Past Surgical History / Comment(s): CATARACTS, ORIF left hip & then replacement Past Anesthesia/Blood Transfusion Reactions: No Reported Reaction Past Psychological History: Anxiety, Depression Smoking Status: Never smoker Past Alcohol Use History: None Reported Past Drug Use History: None Reported - Past Family History Mother Family Medical History: No Reported History Father Family Medical History: Congestive Heart Failure (CHF) Medications and Allergies Home Medications Medication Instructions Recorded Confirmed Type Atorvastatin Calcium [Lipitor] 10 mg PO HS 12/29/21 08/07/24 History Metoprolol Succinate (ER) [Toprol 25 mg PO HS 02/16/22 08/07/24 History XL] FLUoxetine HCL [PROzac] 10 mg PO DAILY cap 02/23/22 08/07/24 Rx Apixaban [Eliquis] 5 mg PO BID 08/07/24 08/07/24 History Dapagliflozin Propanediol [Farxiga] 10 mg PO DAILY 08/07/24 08/07/24 History Fluticasone/Umeclidin/Vilanter 1 puff INHALATION RT-DAILY 08/07/24 08/07/24 History [Trelegy Ellipta 200-62.5-25] Furosemide [Lasix] 20 mg PO DAILY 08/07/24 08/07/24 History Insulin Aspart [NovoLOG Flexpen] 7 units SQ BID 08/07/24 08/07/24 History Insulin Glargine,Hum.rec.anlog 20 units SQ DAILY 08/07/24 08/07/24 History [Lantus Solostar Pen] Isosorbide Mononitrate ER [Imdur] 30 mg PO DAILY 08/07/24 08/07/24 History Loratadine 10 mg PO DAILY 08/07/24 08/07/24 History Memantine [Namenda] 5 mg PO DAILY 08/07/24 08/07/24 History Montelukast [Singulair] 10 mg PO DAILY 08/07/24 08/07/24 History Sennosides [Senokot] 8.6 mg PO BID 08/07/24 08/07/24 History Tamsulosin [Flomax] 0.4 mg PO DAILY 08/07/24 08/07/24 History lisinopriL [Zestril] 10 mg PO DAILY 08/07/24 08/07/24 History Allergies Allergy/AdvReac Type Severity Reaction Status Date / Time Penicillins Allergy Rash/Hives Verified 08/07/24 15:51 Physical Exam Vitals: Vital Signs Temp Pulse Pulse Resp BP BP Pulse Ox 08/08/24 11:39 80 08/08/24 11:30 76 08/08/24 08:40 80 08/08/24 08:28 80 08/08/24 07:11 98.7 F 81 17 142/95 98 08/08/24 02:00 98.3 F 74 15 135/83 97 08/07/24 21:00 98.4 F 93 18 108/69 95 08/07/24 20:00 99.2 F 87 132/78 99 08/07/24 17:50 98.3 F 81 16 134/75 100 08/07/24 14:29 74 18 134/81 97 08/07/24 12:48 98.1 F 77 18 118/70 96 Intake and Output 08/07/24 08/08/24 08/08/24 22:59 06:59 14:59 Output Total 1100 Balance -1100 Output: Urine 1100 Other: Voiding Method Urinal Incontinent # Voids 1 Weight 92.079 kg GENERAL DESCRIPTION: M elderly male up in the chair, no distress. No tachypnea or accessory muscle of respiration use. HEENT: Shows Pallor , no scleral icterus. Oral mucous membrane is dry. No pharyngeal erythema or thrush NECK: Trachea central, no thyromegaly. LUNGS: Unlabored breathing. Clear to auscultation anteriorly. No wheeze or crackle. HEART: S1, S2, regular rate and rhythm. No loud murmur ABDOMEN: Soft, no tenderness , guarding or rigidity, no organomegaly EXTREMITIES: Left leg with 2+ swelling he did have some some redness and tenderness to touch SKIN: No rash, no masses palpable. NEUROLOGICAL: The patient is awake, alert, oriented x3, mood and affect normal. Results CBC & Chem 7: 08/08/24 03:20 08/08/24 03:20 Labs: Abnormal Lab Results - Last 24 Hours (Table) 08/07/24 08/07/24 08/07/24 Range/Units 14:24 14:24 17:19 RBC 4.25 L (4.30-5.90) m/uL MCV 105.0 H (80.0-100.0) fL MCH (27.0-32.0) pg MCHC 30.0 L (31.0-37.0) g/dL RDW (11.5-14.5) % MPV (9.5-12.2) FL Immature Gran # (0.00-0.04) X 10*3/uL Lymphocytes # 0.7 L (1.0-4.8) k/uL Chloride (98-107) mmol/L BUN 27 H (9-20) mg/dL Creatinine 1.53 H (0.66-1.25) mg/dL Glucose 104 H (74-99) mg/dL POC Glucose (mg/dL) 155 H (70-110) mg/dL Hemoglobin A1c (<=6.0) % Total Protein 5.7 L (6.3-8.2) g/dL Albumin (3.5-5.0) g/dL 08/07/24 08/08/24 08/08/24 Range/Units 18:39 03:20 03:20 RBC 4.23 L (4.30-5.90) m/uL MCV 102.6 H (80.0-100.0) fL MCH 32.6 H (27.0-32.0) pg MCHC 31.8 L (31.0-37.0) g/dL RDW 14.6 H (11.5-14.5) % MPV 8.6 L (9.5-12.2) FL Immature Gran # 0.08 H (0.00-0.04) X 10*3/uL Lymphocytes # 0.55 L (1.0-4.8) k/uL Chloride 108 H (98-107) mmol/L BUN 28 H (9-20) mg/dL Creatinine 1.57 H (0.66-1.25) mg/dL Glucose 119 H (74-99) mg/dL POC Glucose (mg/dL) (70-110) mg/dL Hemoglobin A1c 9.6 H (<=6.0) % Total Protein 5.6 L (6.3-8.2) g/dL Albumin 3.3 L (3.5-5.0) g/dL Assessment and Plan (1) Left leg cellulitis Current Visit: Yes Status: Acute Code(s): L03.116 - CELLULITIS OF LEFT LOWER LIMB SNOMED Code(s): 77404613043142522 (2) Penicillin allergy Current Visit: Yes Status: Acute Code(s): Z88.0 - ALLERGY STATUS TO PENICILLIN SNOMED Code(s): 08642912 Plan: 1patient presented to hospital with left lower extremity swelling and redness has been diagnosed with a cellulitis apparently started with infected toenail currently do not have open wound or any drainage likely from gram-positive skin monika as the patient did have evidence of fluid overload. 2nursing staff advised to silvia the area of the redness we will check lower extremity Doppler if negative to apply Sergio wrap from just above the toe to below the knee. 3patient with renal insufficiency risk of nephrotoxic from vancomycin which we will discontinue along with Rocephin. 4penicillin allergy that will limit the number of antibiotics safe to use 5start the patient cefazolin 2 g every 8 hours We will follow on clinical condition and cultures to further adjust medication if needed Thank you for this consultation we will follow the patient along with you Dictation was produced using [email or web address] dictation software. please excuse any grammatical, word or spelling errors. Time with Patient: Greater than 30
--- NOTE | 2024-08-08 23:36 | HP ---
HISTORY AND PHYSICAL HISTORY OF PRESENT ILLNESS: 79-year-old white male came in with severe left leg swelling with redness from the knee down to the foot, failing outpatient treatment. He has severe swelling, 3+ edema in the left leg versus 2+ on the right. He is a diabetic, is noncompliant with his treatment at home. Denies any physical trauma, admitted with IV antibiotics and diuresis with acute on chronic diastolic heart failure. HOME MEDICATIONS: 1. Lipitor 10 daily. 2. Toprol-XL 25 daily. 3. Eliquis 5 daily. 4. Farxiga 10 daily. 5. Trelegy daily. 6. Lasix 20 daily. 7. NovoLog FlexPen 70 subcu b.i.d. 8. Imdur 30 mg daily. 9. Loratadine 10 daily. 10.Namenda 5 mg daily. 11.Singulair 10 mg daily. 12.Flomax 0.4 daily. 13.Zestril 10 daily. ALLERGIES: Penicillin. REVIEW OF SYSTEMS: 14-point review of systems otherwise negative except for memory loss and some dementia starting. PAST MEDICAL HISTORY: Diabetes mellitus. SURGERIES: Joint replacement, orthopedic surgery, cataracts, anxiety, depression. SOCIAL HISTORY: Never smoked. FAMILY HISTORY: Mother, father, congestive heart failure. PHYSICAL EXAMINATION: GENERAL: Well developed, well nourished, well hydrated, in no acute distress. HEENT: Normocephalic, atraumatic. Wears glasses. Pupils equal, round, reactive. NECK: Supple. No mass. CARDIOVASCULAR: Regular rate and rhythm. No murmurs, rubs, gallops. ABDOMEN: Soft, nontender. SKIN: 2 to 3+ edema in the lower extremities. PSYCH: Fair mood and affect. NEUROLOGIC: Cranial nerves are intact. MUSCULOSKELETAL: Left leg anterior leg is warm and red. No open wound on the left leg or foot. It is red, swollen, warm from the knee down to the toes. HEMATOLOGY: Negative Homans. VITAL SIGNS: Temp 98.1, pulse 74-76, respiratory rate 16-18, blood pressure 118 to 134/70 to 80, . ASSESSMENT: 1. Cellulitis, left leg. 2. Acute on chronic diastolic heart failure. 3. Acute on chronic renal disease. 4. Acute kidney injury. 5. Dehydration. 6. Prerenal azotemia. PROGNOSIS: Guarded. Please see further orders. Continue home medicines. Ordered IV antibiotics, IV diuresis. MMODL / IJN: [id number] /
[2024-08-09] MEDS ORDERED: LORazepam 2 MG/ML INJ IV PRN (05:54)
[2024-08-09 06:56] LABS: Glucose,Whole Blood 187 mg/dL (70-110)
[2024-08-09 09:41] VITALS: RESP 18
[2024-08-09 11:38] LABS: Glucose,Whole Blood 195 mg/dL (70-110)
[2024-08-09 14:15] VITALS: BP 95/59; PULSE 89; TEMP 97.8
--- NOTE | 2024-08-09 15:29 | P.PN ---
Subjective Progress Note Date: 08/09/24 Principal diagnosis: Reason for follow-up is left leg cellulitis Patient is a 79-year-old male with a past medical history significant for diabetes mellitus osteoarthritis anxiety depression, patient has been brought into the hospital for evaluation of left leg swelling redness concerning for cellulitis Doppler was negative for DVT. On today's evaluation that is 08/09/2024, Patient is afebrile patient is currently on room air and denies having any shortness of breath, the patient denies any chest pain or cough, the patient denies any nausea vomiting did not have any abdominal pain and no diarrhea patient denies any worsening pain to the left lower extremity still have some swelling and redness. No new lab has been repeated today Objective - Vital Signs Vital signs: Vital Signs Temp 97.8 F 08/09/24 13:50 Pulse 89 08/09/24 13:50 Resp 18 08/09/24 13:50 BP 95/59 08/09/24 13:50 Pulse Ox 97 08/09/24 13:50 FiO2 Intake & Output 08/08/24 08/09/24 08/09/24 18:59 06:59 18:59 Weight 92.079 kg Other: Voiding Method Incontinent Incontinent Incontinent # Voids 5 3 - Exam GENERAL DESCRIPTION: An elderly male up in the chair RESPIRATORY SYSTEM: Unlabored breathing , decreased breath sounds at bases HEART: S1 S2 regular rate and rhythm , ABDOMEN: Soft , no tenderness EXTREMITIES: Left leg with 2+ edema feet did have some redness and tender to touch - Labs CBC & Chem 7: 08/08/24 03:20 08/08/24 03:20 Labs: Abnormal Lab Results - Last 24 Hours (Table) 08/08/24 08/09/24 08/09/24 Range/Units 16:43 06:54 11:37 POC Glucose (mg/dL) 175 H 187 H 195 H (70-110) mg/dL Assessment and Plan (1) Left leg cellulitis Current Visit: Yes Status: Acute Code(s): L03.116 - CELLULITIS OF LEFT LOWER LIMB SNOMED Code(s): 61844275940355890 (2) Penicillin allergy Current Visit: Yes Status: Acute Code(s): Z88.0 - ALLERGY STATUS TO PENICILLIN SNOMED Code(s): 74392593 Plan: 1patient presented to hospital with left lower extremity swelling and redness has been diagnosed with a cellulitis apparently started with infected toenail currently do not have open wound or any drainage likely from gram-positive skin monika as the patient did have evidence of fluid overload. 2lower extremity Doppler has been negative for DVT Sergio wrap requested but not applied 3patient with renal insufficiency risk of nephrotoxic from vancomycin which has been discontinued 4penicillin allergy that will limit the number of antibiotics safe to use 5nursing staff has been advised to apply Sergio wrap to get some of the swelling down and continue with the cefazolin Dictation was produced using [employer] dictation software. please excuse any grammatical, word or spelling errors. Time with Patient: Less than 30
[2024-08-09] MEDS ORDERED: CEPHALEXIN 500 MG CAP PO SCH (21:00)
--- NOTE | 2024-08-10 01:29 | PN ---
PROGRESS NOTE SUBJECTIVE: Admitted with IV antibiotics for cellulitis of lower extremities, was put on Keflex, will possibly go home today. He had IV Lasix for 2 days. I am going to send him home on oral Lasix. He is up ambulating. OBJECTIVE: CARDIOVASCULAR: S1 and S2. LUNGS: Transmitted upper sounds. GI: Soft. HEMATOLOGY: Negative Homans. ASSESSMENT: 1. Cellulitis of the left leg. 2. Acute on chronic congestive heart failure. 3. Chronic obstructive pulmonary disease. 4. Dementia. 5. Hypertension. Continue current treatment, hypothyroidism, diabetes. We will discharge him home on oral Keflex and oral Lasix, possibly seen him in a week. MMODL / IJN: [id number] /
[2024-08-10] MEDS ORDERED: FUROSEMIDE 40 MG TAB PO SCH (09:00)
== END 2024-08-09 15:59 | disposition home or self-care (01) | DRG 602 ==
LOC: EC 12:41 → 5NMEDONC 17:01 → 4SSUR 19:41
PROVIDERS: ADMIT Family Medicine; ATTEND Family Medicine
DX: L03.116 Cellulitis of left lower limb (principal); I50.33 Acute on chronic diastolic (congestive) heart failure; I13.0 Hypertensive heart and chronic kidney disease with heart failure and stage 1 through stage 4 chronic kidney disease, or unspecified chronic kidney disease; N17.9 Acute kidney failure, unspecified; E03.9 Hypothyroidism, unspecified; E11.22 Type 2 diabetes mellitus with diabetic chronic kidney disease; E86.0 Dehydration; F03.90 Unspecified dementia, unspecified severity, without behavioral disturbance, psychotic disturbance, mood disturbance, and anxiety; J44.9 Chronic obstructive pulmonary disease, unspecified; L03.115 Cellulitis of right lower limb; N18.9 Chronic kidney disease, unspecified; Z79.01 Long term (current) use of anticoagulants; Z79.4 Long term (current) use of insulin; Z79.84 Long term (current) use of oral hypoglycemic drugs; Z79.899 Other long term (current) drug therapy; Z82.49 Family history of ischemic heart disease and other diseases of the circulatory system; Z88.0 Allergy status to penicillin; Z91.199 Patient's noncompliance with other medical treatment and regimen due to unspecified reason
CPT/HCPCS: 36415; 71250; 80053; 83036; 83605; 83880; 85025; 85379; 93306; 94640; 96365; 96366; 96375; 99285

== ENCOUNTER 2024-11-04 15:10 | Observation (INO) | payer MEDICARE ==
--- NOTE | 2024-11-04 15:57 | CT ---
EXAMINATION TYPE: CT brain cspine wo con DATE OF EXAM: 11/04/2024 3:42 PM COMPARISON: None. CLINICAL INDICATION: Male, 79 years old with history of fall, on anticoagulants; Code coag. Fall, on anticoagulants., pain TECHNIQUE: Brain: Multiple axial CT images of the brain were obtained without IV contrast. Cspine: Axial CT images from the skull base to the inferior aspect of T2 we obtained without intraven ous contrast. Coronal and sagittal reformatted images were also reviewed. . CT DLP: 1331.2 mGycm, Automated exposure control for dose reduction was used. FINDINGS: Brain: Extra-axial spaces: No abnormal extra-axial fluid collections. Ventricular system: Dilatation in proportion to cerebral atrophy. Cerebral parenchyma: Cerebral atrophy. No acute intraparenchymal hemorrhage or mass effect. The troy -white junction is well differentiated. Scattered hypoattenuating areas are seen within the white mat ter. Cerebellum: Unremarkable. Mass effect: No evidence of midline shift. Intracranial vasculature: unremarkable Soft tissues: Scalp edema/hematoma Calvarium/osseous structures: No depressed skull fracture. Paranasal sinuses and mastoid air cells: Mild scattered mucosal thickening and or secretions. Visualized orbits: Orbital contents are intact. Cervical spine: Fracture: None. Osseous structures: Multilevel degenerative disc disease changes with endplate spurring and disc oste ophyte complex's. Vertebral alignment: Within normal limits. Spinal canal/Neural Foramina: No evidence of significant spinal canal narrowing. No evidence for sign ificant neural foraminal stenosis. Neck soft tissues: Prevertebral soft tissues are within normal limits. Other: The airway is patent. The lung apices are clear. IMPRESSION: 1. No acute intracranial process. 2. Frontal scalp edema/hematoma without evidence of fracture 3. Nonspecific white matter changes, likely secondary to chronic small vessel ischemic disease. 4. No evidence of cervical spine fracture. 5. Mild multilevel degenerative disc disease. [facility], , 11/04/2024 3:54 PM
[2024-11-04 15:59] LABS: Basophils # (A) 0.1 k/uL (0-0.2); Basophils % (A) 1 %; Eosinophils # (A) 0.1 k/uL (0-0.7); Eosinophils % (A) 1 %; HCT 49.4 % (39.0-53.0); Lymphocytes # (A) 1.4 k/uL (1.0-4.8); Lymphocytes % (A) 14 %; MCH 33.5 pg (25.0-35.0); MCHC 32.4 g/dL (31.0-37.0); MCV 103.4 fL (80.0-100.0); Macrocytosis Slight; Mean Platelet Volume 6.9; Monocytes # (A) 0.6 k/uL (0-1.0); Monocytes % (A) 6 %; Neutrophils # (A) 7.7 k/uL (1.3-7.7); Neutrophils % (A) 77 %; Platelet Count 295 k/uL (150-450); RBC 4.78 m/uL (4.30-5.90); RDW 14.1 % (11.5-15.5); WBC 9.9 k/uL (3.8-10.6)
--- NOTE | 2024-11-04 16:05 | XR ---
EXAMINATION TYPE: XR hand complete LT DATE OF EXAM: 11/04/2024 4:01 PM COMPARISON: None CLINICAL INDICATION: Male, 79 years old with history of fall; , pain TECHNIQUE: XR hand complete LT 3 views were obtained. FINDINGS: Normal alignment of the visualized joints. No acute osseous pathology is identified. No e vidence of soft tissue swelling. No significant degeneration atherosclerosis of the arterial vasculat ure. IMPRESSION: No acute osseous pathology. Multifocal osteoarthrosis throughout the joints of the hand. [facility], , 11/04/2024 4:03 PM
[2024-11-04 16:14] LABS: INR 1.1 (<1.2); Prothrombin Time 11.8 sec (10.0-12.5)
[2024-11-04 16:17] LABS: ALT 34 U/L (4-49); AST 26 U/L (17-59); African American GFR (CKD) 43 (>60 ml/min/1.73 sqM); Albumin 4.2 g/dL (3.5-5.0); Alkaline Phosphatase 84 U/L (38-126); Anion Gap 12 mmol/L; Blood Urea Nitrogen 37 mg/dL (9-20); Calcium 9.4 mg/dL (8.4-10.2); Carbon Dioxide 22 mmol/L (22-30); Chloride 105 mmol/L (98-107); Glucose 153 mg/dL (74-99); Non-African American GFR(CKD) 38 (>60 ml/min/1.73 sqM); Potassium 4.3 mmol/L (3.5-5.1); Sodium 139 mmol/L (137-145); Total Bilirubin 0.8 mg/dL (0.2-1.3); Total Protein 6.2 g/dL (6.3-8.2)
--- NOTE | 2024-11-04 17:54 | ED ---
Fall HPI - General Chief Complaint: Fall Stated Complaint: fall-thinners Time Seen by Provider: 11/04/24 15:15 Source: EMS Mode of arrival: EMS - Related Data Home Medications Medication Instructions Recorded Confirmed Atorvastatin Calcium [Lipitor] 10 mg PO HS@199912/29/21 11/04/24 Metoprolol Succinate (ER) [Toprol 25 mg PO DAILY@0800 02/16/22 11/04/24 XL] Apixaban [Eliquis] 5 mg PO BID@08,199908/07/24 11/04/24 Dapagliflozin Propanediol [Farxiga] 10 mg PO DAILY@0808/07/24 11/04/24 Fluticasone/Umeclidin/Vilanter 1 puff INHALATION RT-DAILY@79908/07/24 11/04/24 [Trelegy Ellipta 200-62.5-] Insulin Aspart [NovoLOG Flexpen] 7 units SQ TID@0800,1100,1700 08/07/24 11/04/24 Insulin Glargine,Hum.rec.anlog 20 units SQ DAILY@79908/07/24 11/04/24 [Lantus Solostar Pen] Isosorbide Mononitrate ER [Imdur] 30 mg PO DAILY@79908/07/24 11/04/24 Loratadine 10 mg PO DAILY@0808/07/24 11/04/24 Memantine [Namenda] 5 mg PO DAILY@79908/07/24 11/04/24 Montelukast [Singulair] 10 mg PO DAILY@79908/07/24 11/04/24 Sennosides [Senokot] 8.6 mg PO BID@08,199908/07/24 11/04/24 Tamsulosin [Flomax] 0.4 mg PO DAILY@79908/07/24 11/04/24 lisinopriL [Zestril] 10 mg PO DAILY@0800 08/07/24 11/04/24 FLUoxetine HCL [PROzac] 10 mg PO DAILY@0800 11/04/24 11/04/24 Furosemide [Lasix] 20 mg PO DAILY@0800 11/04/24 11/04/24 Terbinafine [LamISIL] 250 mg PO DAILY@0800 11/04/24 11/04/24 Tolterodine ER [Detrol LA] 4 mg PO DAILY@0800 11/04/24 11/04/24 Previous Rx's Medication Instructions Recorded Ipratropium Nebulized [Atrovent 0.5 mg INHALATION RT-QID 30 Days 08/09/24 Nebulized 0.2 MG/ML] #120 ml Allergies Allergy/AdvReac Type Severity Reaction Status Date / Time Penicillins Allergy Rash/Hives Verified 11/04/24 16:49 Review of Systems ROS Statement: Those systems with pertinent positive or pertinent negative responses have been documented in the HPI. ROS Other: All systems not noted in ROS Statement are negative. Past Medical History Past Medical History: Diabetes Mellitus Additional Past Medical History / Comment(s): recent adm. for low BS-meds adjusted, hip replacement surg. cancelled recently due to abn. stress test History of Any Multi-Drug Resistant Organisms: None Reported Past Surgical History: Joint Replacement, Orthopedic Surgery Additional Past Surgical History / Comment(s): CATARACTS, ORIF left hip & then replacement Past Anesthesia/Blood Transfusion Reactions: No Reported Reaction Past Psychological History: Anxiety, Depression Smoking Status: Never smoker Past Alcohol Use History: None Reported Past Drug Use History: None Reported - Past Family History Mother Family Medical History: No Reported History Father Family Medical History: Congestive Heart Failure (CHF) General Exam Limitations: altered mental status Course Vital Signs 11/04/24 11/04/24 11/04/24 15:13 15:49 16:43 Temperature 97.0 F L Pulse Rate 71 76 78 Respiratory 20 18 18 Rate Blood Pressure 139/80 167/83 136/106 O2 Sat by Pulse 99 100 99 Oximetry 11/04/24 18:08 Temperature 99.0 F Pulse Rate 70 Respiratory 18 Rate Blood Pressure 143/99 O2 Sat by Pulse 97 Oximetry Medical Decision Making - Lab Data Result diagrams: 11/04/24 15:48 11/04/24 15:48 Lab Results 11/04/24 11/04/24 11/04/24 Range/Units 15:48 15:48 15:48 WBC 9.9 (3.8-10.6) k/uL RBC 4.78 (4.30-5.90) m/uL Hgb 16.0 (13.0-17.5) gm/dL Hct 49.4 (39.0-53.0) % MCV 103.4 H (80.0-100.0) fL MCH 33.5 (25.0-35.0) pg MCHC 32.4 (31.0-37.0) g/dL RDW 14.1 (11.5-15.5) % Plt Count 295 (150-450) k/uL MPV 6.9 Neutrophils % 77 % Lymphocytes % 14 % Monocytes % 6 % Eosinophils % 1 % Basophils % 1 % Neutrophils # 7.7 (1.3-7.7) k/uL Lymphocytes # 1.4 (1.0-4.8) k/uL Monocytes # 0.6 (0-1.0) k/uL Eosinophils # 0.1 (0-0.7) k/uL Basophils # 0.1 (0-0.2) k/uL Macrocytosis Slight PT 11.8 (10.0-12.5) sec INR 1.1 (<1.2) Sodium 139 (137-145) mmol/L Potassium 4.3 (3.5-5.1) mmol/L Chloride 105 (98-107) mmol/L Carbon Dioxide 22 (22-30) mmol/L Anion Gap 12 mmol/L BUN 37 H (9-20) mg/dL Creatinine 1.72 H (0.66-1.25) mg/dL Est GFR (CKD-EPI)AfAm 43 (>60 ml/min/1.73 sqM) Est GFR (CKD-EPI)NonAf 38 (>60 ml/min/1.73 sqM) Glucose 153 H (74-99) mg/dL Calcium 9.4 (8.4-10.2) mg/dL Total Bilirubin 0.8 (0.2-1.3) mg/dL AST 26 (17-59) U/L ALT 34 (4-49) U/L Alkaline Phosphatase 84 (38-126) U/L Total Protein 6.2 L (6.3-8.2) g/dL Albumin 4.2 (3.5-5.0) g/dL Disposition Clinical Impression: Fall, Head injury Disposition: ADMITTED IP TO THIS [facility] Condition: Stable Instructions (If sedation given, give patient instructions): Care For Your Stitches (ED), Head Injury (ED) Additional Instructions: Your stitches must be removed in 7 days. Please follow-up with your doctor or return to the emergency department to have the stitches removed. You have 7 s titches in your larger cut and 2 stitches in your smaller cut. Follow-up with your primary care doctor to ensure that you are healing and return for any new or worsening symptoms Is patient prescribed a controlled substance at d/c from ED?: No Referrals: Bill Banks MD [Primary Care Provider] - 1-2 days Time of Disposition: 17:54 Decision to Admit Reason: Admit from EC Decision Date: 11/04/24 Decision Time: 18:47
[2024-11-04] MEDS ORDERED: NALOXONE 0.4 MG/ML 1 ML VIAL IV PRN (18:47)
[2024-11-04 18:50] LABS: Glucose,Whole Blood 115 mg/dL (70-110)
[2024-11-04 20:36] LABS: Appearance,Urine Clear (Clear); Bilirubin,Urine Negative (Negative); Blood,Urine Negative (Negative); Color,Urine Colorless; Glucose,Urine (UA) 4+ (Negative); Ketones,Urine Negative (Negative); Leukocyte Esterase,Urine Negative (Negative); Nitrite,Urine Negative (Negative); Protein,Urine Negative (Negative); Specific Gravity,Urine 1.011 (1.001-1.035); Urobilinogen,Urine <2.0 mg/dL (<2.0)
[2024-11-05] MEDS: ACETAMINOPHEN TAB 325 MG TAB PO PRN (03:58)
[2024-11-05] MEDS: INSULIN ASPART (NovoLOG) 100 UNIT/ML VIAL SQ SCH (08:00)
[2024-11-05 09:10] LABS: BUN/Creat Ratio 16.82 Ratio (12.00-20.00); Blood Urea Nitrogen 28.6 mg/dL (9.0-27.0); Calcium 8.8 mg/dL (8.7-10.3); Carbon Dioxide 22.5 mmol/L (21.6-31.8); Chloride 107 mmol/L (96-109); Glucose 152 mg/dL (70-110); Potassium 3.9 mmol/L (3.5-5.5); Sodium 142 mmol/L (135-145)
[2024-11-05 09:11] LABS: Basophils # (A) 0.06 X 10*3/uL (0.00-0.10); Basophils % (A) 0.7 %; Eosinophils % (A) 1.1 %; HCT 47.5 % (39.6-50.0); HGB 15.7 g/dL (13.0-17.0); Lymphocytes % (A) 9.8 %; MCH 33.4 pg (27.0-32.0); MCHC 33.1 g/dL (32.0-37.0); MCV 101.1 FL (80.0-97.0); Mean Platelet Volume 8.9 FL (9.5-12.2); Monocytes % (A) 13.1 %; NRBC Per 100 WBC 0 X 10*3/uL (0.00-0.01); Neutrophils # (A) 6.84 X 10*3/uL (1.80-7.70); Neutrophils % (A) 74.5 %; Platelet Count 244 X 10*3/uL (140-440); WBC 9.17 X 10*3/uL (4.50-10.00)
[2024-11-05] MEDS: IPRATROPIUM 0.5 MG/2.5 ML NEBU INHALATION SCH (09:35)
[2024-11-05] MEDS: TIOTROPIUM 2.5 MCG INHALER INHALATION SCH (09:38)
[2024-11-05] MEDS: SYMBICORT 160-4.5 MCG INHALER INHALATION SCH (09:38)
[2024-11-05] MEDS: OXYBUTYNIN XL 5 MG TAB.ER.24 PO SCH (11:04)
[2024-11-05] MEDS: MEMANTINE 5 MG TAB PO SCH (11:05)
[2024-11-05] MEDS: MONTELUKAST 10 MG TAB PO SCH (11:05)
[2024-11-05] MEDS: LORATADINE 10 MG TAB PO SCH (11:05)
[2024-11-05] MEDS: lisinopriL 10 MG TAB PO SCH (11:05)
[2024-11-05] MEDS: ISOSORBIDE MONONITRATE ER 30 MG TAB.ER.24H PO SCH (11:05)
[2024-11-05] MEDS: METOPROLOL SUCCINATE (ER) 25 MG TAB.ER.24H PO SCH (11:05)
[2024-11-05] MEDS: FUROSEMIDE 20 MG TAB PO SCH (11:05)
[2024-11-05] MEDS: DAPAGLIFLOZIN PROPANEDIOL 10 MG TABLET PO SCH (11:06)
[2024-11-05] MEDS: TAMSULOSIN 0.4 MG CAP.ER.24H PO SCH (11:06)
[2024-11-05] MEDS: FLUoxetine HCL 10 MG CAP PO SCH (11:06)
[2024-11-05] MEDS: SENNOSIDES 8.6 MG TAB PO SCH (11:07)
[2024-11-05] MEDS: INSULIN DETEMIR (LEVEMIR) 100 UNIT/ML SYR SQ SCH (11:23)
--- NOTE | 2024-11-05 13:47 | P.CRDCN ---
History of Present Illness Consult date: 11/05/24 Consult reason: atrial fibrillation History of present illness: This is a 79-year-old male patient of Dr. Rogers with past medical history of coronary artery with known intermediate disease involving the diagonal branch, hypertension, dyslipidemia, diabetes, paroxysmal atrial fibrillation on Eliquis, dementia. We have been requested to evaluate the patient for atrial fibrillation. Patient came into the hospital due to a fall. Patient states that he was walking outside with his walker and all of a sudden he just blacked out and fell to the ground injuring his face. Apparently home health care called the family but this was not witnessed by anyone. He denies any recent medication changes. He feels fine at the time of this evaluation. He denies having chest pain or chest pressure. No lightheadedness or dizziness. No palpitations. He normally walks with his walker. He has been taking all of his medications as directed. Blood pressure 147/87, heart rate 76, pulse ox 99% on room air. Patient has been resumed on his home cardiac medications. Telemetry is atrial fibrillation with controlled ventricular rate -EKG: Atrial fibrillation with ventricular rate of 82 bpm -CT of the head and neck: No acute intracranial process. Frontal scalp edema without evidence of fracture. Chronic small vessel ischemic changes. No eviden ce of cervical spine fracture. Mild multilevel degenerative disc disease. -Hand x-ray: No acute pathology -Laboratory studies: WBC 9.9, hemoglobin 16, electrolytes are normal. BUN 37 creatinine 1.72 -Home cardiac medications: Eliquis 5 mg twice daily, atorvastatin 10 mg at bedtime, Farxiga 10 mg daily, Lasix 20 mg daily, isosorbide 30 mg daily, lisinopril 10 mg daily, Toprol XL 25 mg daily. -Left heart catheterization performed 05/29/2022 revealed calcified right and left coronary system. Intermediate lesion involving a small second diagonal branch. Plan for medical management. Review Of Systems: At the time of my exam: CONSTITUTIONAL: Denies fever or chills. HEENT: Denies blurred vision, vision changes, or eye pain. Denies hemoptysis CARDIOVASCULAR: Denies chest pain. Denies orthopnea. Denies PND. Denies palpitations RESPIRATORY: Denies shortness of breath. GASTROINTESTINAL: Denies abdominal pain. Denies nausea or vomiting. HEMATOLOGIC: Denies bleeding disorders. GENITOURINARY: Denies any blood in urine. SKIN: Denies puritis. Denies rash. Physical examination: Gen: This is a 79-year-old male in no acute distress VS: reviewed HEENT: Significant ecchymosis to the face specially the right orbit, normocephalic. Pupils equal, round. Sclerae is anicteric. NECK: Supple. No JVD. LUNGS: Clear to auscultation. No wheezes or rhonchi. No intercostal retractions. HEART: Regular rate and rhythm. Systolic murmur. ABDOMEN: Soft No tenderness. EXTREMITIES: No pedal edema. No calf tenderness. NEUROLOGICAL: Patient is awake, alert and oriented to person. Assessment: Fall with syncope Paroxysmal atrial fibrillation on Eliquis History of coronary artery disease with intermediate disease involving the diagonal branch Hypertension Dyslipidemia Dementia Plan: Resume patient's home cardiac medications At this time, would recommend continuing Eliquis as the benefits outweigh risk. Obtain 2-D echocardiogram and Doppler study to assess cardiac structure and function Obtain 30-day event monitor prior to discharge Patient is cleared for discharge from cardiology and may follow-up with Dr. Rogers in 5 weeks. Thank you kindly for this consultation. Nurse practitioner note has been reviewed, I agree with documented findings and plan of care. Patient was seen and examined. Past Medical History Past Medical History: Atrial Fibrillation, Heart Failure, Diabetes Mellitus Additional Past Medical History / Comment(s): recent adm. for low BS-meds adjusted History of Any Multi-Drug Resistant Organisms: None Reported Past Surgical History: Joint Replacement, Orthopedic Surgery Additional Past Surgical History / Comment(s): CATARACTS, Bilat hip replacement Past Anesthesia/Blood Transfusion Reactions: No Reported Reaction Past Psychological History: Anxiety, Depression Smoking Status: Never smoker Past Alcohol Use History: None Reported Past Drug Use History: None Reported - Past Family History Mother Family Medical History: No Reported History Father Family Medical History: Congestive Heart Failure (CHF) Medications and Allergies Home Medications Medication Instructions Recorded Confirmed Type Atorvastatin Calcium [Lipitor] 10 mg PO HS@199912/29/21 11/04/24 History Metoprolol Succinate (ER) [Toprol 25 mg PO DAILY@0800 02/16/22 11/04/24 History XL] Apixaban [Eliquis] 5 mg PO BID@08/07/24 11/04/24 History Dapagliflozin Propanediol [Farxiga] 10 mg PO DAILY@0800 08/07/24 11/04/24 History Fluticasone/Umeclidin/Vilanter 1 puff INHALATION RT-DAILY@0808/07/24 11/04/24 History [Sukhdeep Nagelta 200-62.5-25] Insulin Aspart [NovoLOG Flexpen] 7 units SQ TID@0800,1100,1700 08/07/24 11/04/24 History Insulin Glargine,Hum.rec.anlog 20 units SQ DAILY@0800 08/07/24 11/04/24 History [Lantus Solostar Pen] Isosorbide Mononitrate ER [Imdur] 30 mg PO DAILY@0808/07/24 11/04/24 History Loratadine 10 mg PO DAILY@0800 08/07/24 11/04/24 History Memantine [Namenda] 5 mg PO DAILY@0808/07/24 11/04/24 History Montelukast [Singulair] 10 mg PO DAILY@0808/07/24 11/04/24 History Sennosides [Senokot] 8.6 mg PO BID@0800,199908/07/24 11/04/24 History Tamsulosin [Flomax] 0.4 mg PO DAILY@0808/07/24 11/04/24 History lisinopriL [Zestril] 10 mg PO DAILY@0800 08/07/24 11/04/24 History Ipratropium Nebulized [Atrovent 0.5 mg INHALATION RT-QID 30 Days 08/09/24 11/04/24 Rx Nebulized 0.2 MG/ML] #120 ml FLUoxetine HCL [PROzac] 10 mg PO DAILY@79911/04/24 11/04/24 History Furosemide [Lasix] 20 mg PO DAILY@79911/04/24 11/04/24 History Terbinafine [LamISIL] 250 mg PO DAILY@0811/04/24 11/04/24 History Tolterodine ER [Detrol LA] 4 mg PO DAILY@0800 11/04/24 11/04/24 History Allergies Allergy/AdvReac Type Severity Reaction Status Date / Time Penicillins Allergy Rash/Hives Verified 11/04/24 16:49 Physical Exam Vitals: Vital Signs Temp Pulse Pulse Resp BP BP Pulse Ox 11/05/24 07:00 98.2 F 76 16 147/87 99 11/05/24 02:00 98.2 F 87 17 136/67 99 11/04/24 20:00 98.1 F 89 17 161/84 98 11/04/24 19:25 18 153/87 11/04/24 18:08 99.0 F 70 18 143/99 97 11/04/24 16:43 78 18 136/106 99 11/04/24 15:49 76 18 167/83 100 11/04/24 15:13 97.0 F L 71 20 139/80 99 Intake and Output 11/04/24 11/05/24 11/05/24 22:59 06:59 14:59 Output Total 425 Balance -425 Output: Urine 425 Other: Voiding Method Diaper Diaper # Voids 1 3 Weight 77.111 kg Results 11/05/24 05:20 11/05/24 05:20 Cardiac Enzymes 11/04/24 Range/Units 15:48 AST 26 (17-59) U/L Coagulation 11/04/24 Range/Units 15:48 PT 11.8 (10.0-12.5) sec CBC 11/04/24 Range/Units 15:48 WBC 9.9 (3.8-10.6) k/uL RBC 4.78 (4.30-5.90) m/uL Hgb 16.0 (13.0-17.5) gm/dL Hct 49.4 (39.0-53.0) % Plt Count 295 (150-450) k/uL Comprehensive Metabolic Panel 11/04/24 Range/Units 15:48 Sodium 139 (137-145) mmol/L Potassium 4.3 (3.5-5.1) mmol/L Chloride 105 (98-107) mmol/L Carbon Dioxide 22 (22-30) mmol/L BUN 37 H (9-20) mg/dL Creatinine 1.72 H (0.66-1.25) mg/dL Glucose 153 H (74-99) mg/dL Calcium 9.4 (8.4-10.2) mg/dL AST 26 (17-59) U/L ALT 34 (4-49) U/L Alkaline Phosphatase 84 (38-126) U/L Total Protein 6.2 L (6.3-8.2) g/dL Albumin 4.2 (3.5-5.0) g/dL Current Medications Generic Name Dose Route Start Last Admin Trade Name Freq PRN Reason Stop Dose Admin Acetaminophen 650 mg 11/04/24 18:47 11/05/24 03:58 Acetaminophen Tab 325 Mg Tab PO 650 mg Q6HR PRN Administration Mild Pain or Fever > 100.5 Atorvastatin Calcium 10 mg 11/05/24 20:00 Atorvastatin 10 Mg Tab PO HS@2000 [facility] Budesonide/Formoterol Fumarate 2 puff 11/05/24 08:00 Symbicort 160-4.5 Mcg Inhaler INHALATION RT-BID [facility] Dapagliflozin 10 mg 11/05/24 08:00 Dapagliflozin Propanediol 10 Mg Tablet PO DAILY@0800 [facility] Fluoxetine HCl 10 mg 11/05/24 08:00 Fluoxetine Hcl 10 Mg Cap PO DAILY@0800 [facility] Furosemide 20 mg 11/05/24 08:00 Furosemide 20 Mg Tab PO DAILY@0800 [facility] Insulin Aspart 7 unit 11/05/24 08:00 Insulin Aspart (Novolog) 100 Unit/Ml Vial SQ TID@0800,1100,1700 [facility] Insulin Detemir 20 unit 11/05/24 08:00 Insulin Detemir (Levemir) 100 Unit/Ml Syr SQ DAILY@0800 [facility] Ipratropium [place] 0.5 mg 11/05/24 08:00 Ipratropium 0.5 Mg/2.5 Ml Nebu INHALATION RT-QID [facility] Isosorbide Mononitrate 30 mg 11/05/24 08:00 Isosorbide Mononitrate Er 30 Mg Tab.Er.24h PO DAILY@0800 [facility] Lisinopril 10 mg 11/05/24 08:00 Lisinopril 10 Mg Tab PO DAILY@0800 [facility] Loratadine 10 mg 11/05/24 08:00 Loratadine 10 Mg Tab PO DAILY@0800 [facility] Memantine 5 mg 11/05/24 08:00 Memantine 5 Mg Tab PO DAILY@0800 [facility] Metoprolol Succinate 25 mg 11/05/24 08:00 Metoprolol Succinate (Er) 25 Mg Tab.Er.24h PO DAILY@0800 [facility] Montelukast Sodium 10 mg 11/05/24 08:00 Montelukast 10 Mg Tab PO DAILY@0800 [facility] Naloxone HCl 0.2 mg 11/04/24 18:47 Naloxone 0.4 Mg/Ml 1 Ml Vial IV Q2M PRN Opioid Reversal Oxybutynin Chloride 10 mg 11/05/24 08:00 Oxybutynin Xl 5 Mg Tab.Er.24 PO DAILY@0800 [facility] Senna 8.6 mg 11/05/24 08:00 Sennosides 8.6 Mg Tab PO BID@0800,1999 [facility] Tamsulosin HCl 0.4 mg 11/05/24 08:00 Tamsulosin 0.4 Mg Cap.Er.24h PO DAILY@0800 [facility] Tiotropium [place] 2 puff 11/05/24 08:00 Tiotropium 2.5 Mcg Inhaler INHALATION RT-DAILY@0800 [facility] Intake and Output 11/04/24 11/05/24 11/05/24 22:59 06:59 14:59 Output Total 425 Balance -425 Output: Urine 425 Other: Voiding Method Diaper Diaper # Voids 1 3 Weight 77.111 kg 11/04/24 15:48 11/04/24 15:48
--- NOTE | 2024-11-05 16:39 | CA ---
Transthoracic Echo Report Name: Nathan Juan Age: 79 Gender: M : 1945 Exam Date: 11/05/2024 11:40 Exam Location: [facility] Ht (in): 70 Wt (lb): 170 Ordering Physician: Dina Hardin Attending/Referring Phys: [id number], Wilfred [employer] Holder Hallie Quinones RDCS Procedure CPT: Indications: LVF Cardiac Hx: LImited study, had a previous full echo on 08-07-2024 Technical Quality: Fair Contrast 1: Total Dose (mL): Contrast 2: Total Dose (mL): MEASUREMENTS (Male / Female) Normal Values DOPPLER AV Peak Velocity 108.5 cm/s AV Peak Gradient 4.7 mmHg AV Mean Velocity 81.6 cm/s AV Mean Gradient 2.9 mmHg AV Velocity Time Integral 19.6 cm LVOT Peak Velocity 75.6 cm/s LVOT Peak Gradient 2.3 mmHg LVOT Velocity Time Integral 15.4 cm TR Peak Velocity 228.5 cm/s TR Peak Gradient 20.9 mmHg Right Atrial Pressure 5.0 mmHg Pulmonary Artery Systolic Pressu 25.9 mmHg Right Ventricular Systolic Press 25.9 mmHg FINDINGS Left Ventricle Left ventricular ejection fraction is estimated at 55-60 %. Left ventricular cavity size normal. No obvious regional wall motion abnormalities. Right Ventricle Right ventricle not well visualized. Normal right ventricular global systolic function. Right ventricular systolic pressure within normal limits. Right Atrium Left Atrium Mitral Valve Structurally normal mitral valve. Mitral annular calcification. No mitral stenosis. No mitral regurgitation. Aortic Valve Trileaflet aortic valve. Aortic valve sclerosis. No aortic valve stenosis or regurgitation. Tricuspid Valve Structurally normal tricuspid valve. Trace to mild tricuspid regurgitation. Pulmonic Valve Structurally normal pulmonic valve. Pericardium No pericardial effusion Aorta CONCLUSIONS Limited 2-D echo Left ventricular ejection fraction 55-60% No mitral regurgitation Trace to mild tricuspid regurgitation Previewed by: Dr. Navid Bingham DO (Electronically Signed) Final Date: 05 November 2024 16:38
[2024-11-05 17:30] LABS: Glucose,Whole Blood 225 mg/dL (70-110)
[2024-11-05 19:38] LABS: Glucose,Whole Blood 166 mg/dL (70-110)
[2024-11-05] MEDS: APIXABAN 5 MG TAB PO SCH (20:19)
[2024-11-05] MEDS: ATORVASTATIN 10 MG TAB PO SCH (20:20)
[2024-11-06 05:56] LABS: Glucose,Whole Blood 123 mg/dL (70-110)
[2024-11-06 11:47] LABS: Glucose,Whole Blood 210 mg/dL (70-110)
--- NOTE | 2024-11-06 14:46 | P.PN ---
Subjective This is a 79-year-old male patient of Dr. Rogers with past medical history of coronary artery with known intermediate disease involving the diagonal branch, hypertension, dyslipidemia, diabetes, paroxysmal atrial fibrillation on Eliquis, dementia. We have been requested to evaluate the patient for atrial fibrillation. Patient came into the hospital due to a fall. Patient states that he was walking outside with his walker and all of a sudden he just blacked out and fell to the ground injuring his face. Apparently home health care called the family but this was not witnessed by anyone. He denies any recent medication changes. He feels fine at the time of this evaluation. He denies having chest pain or chest pressure. No lightheadedness or dizziness. No palpitations. He normally walks with his walker. He has been taking all of his medications as directed. Blood pressure 147/87, heart rate 76, pulse ox 99% on room air. Patient has been resumed on his home cardiac medications. Telemetry is atrial fibrillation with controlled ventricular rate -EKG: Atrial fibrillation with ventricular rate of 82 bpm -CT of the head and neck: No acute intracranial process. Frontal scalp edema without evidence of fracture. Chronic small vessel ischemic changes. No evidence of cervical spine fracture. Mild multilevel degenerative disc disease. -Hand x-ray: No acute pathology -Laboratory studies: WBC 9.9, hemoglobin 16, electrolytes are normal. BUN 37 creatinine 1.72 -Home cardiac medications: Eliquis 5 mg twice daily, atorvastatin 10 mg at bedtime, Farxiga 10 mg daily, Lasix 20 mg daily, isosorbide 30 mg daily, lisinopril 10 mg daily, Toprol XL 25 mg daily. -Left heart catheterization performed 05/29/2022 revealed calcified right and left coronary system. Intermediate lesion involving a small second diagonal branch. Plan for medical management. 11/06 patient doing okay. He just had his first bowel movement in a week and feels much better. Denies any chest pain or pressure. Echocardiogram was performed which shows EF 55%. Physical examination: Gen: This is a 79-year-old male in no acute distress VS: reviewed HEENT: Significant ecchymosis to the face specially the right orbit, normocephalic. Pupils equal, round. Sclerae is anicteric. NECK: Supple. No JVD. LUNGS: Clear to auscultation. No wheezes or rhonchi. No intercostal retractions. HEART: Regular rate and rhythm. Systolic murmur. ABDOMEN: Soft No tenderness. EXTREMITIES: No pedal edema. No calf tenderness. NEUROLOGICAL: Patient is awake, alert and oriented to person. Assessment: Fall with syncope Paroxysmal atrial fibrillation on Eliquis History of coronary artery disease with intermediate disease involving the diagonal branch Hypertension Dyslipidemia Dementia Plan: Resume patient's home cardiac medications At this time, would recommend continuing Eliquis as the benefits outweigh risk. echo shows preserved EF without significant valvular disease Obtain 30-day event monitor prior to discharge. He is going to [facility] care [facility] and they should be able to help manage the monitor and return Patient is cleared for discharge from cardiology and may follow-up with Dr. Rogers in 5 weeks. Objective - Vital Signs Vital signs: Vital Signs Temp 98.2 F 11/06/24 13:59 Pulse 64 11/06/24 13:59 Resp 17 11/06/24 13:59 BP 90/53 11/06/24 13:59 Pulse Ox 98 11/06/24 13:59 FiO2 Intake & Output 11/05/24 11/06/24 11/06/24 18:59 06:59 18:59 Intake Total 120 354 Output Total 700 Balance 120 -700 354 Intake: Oral 120 354 Output: Urine 700 Other: Voiding Method Diaper Diaper External Catheter # Voids 1 200 - Labs CBC & Chem 7: 11/05/24 05:20 11/05/24 05:20 Labs: Abnormal Lab Results - Last 24 Hours (Table) 11/05/24 11/05/24 11/06/24 Range/Units 17:29 19:36 05:54 POC Glucose (mg/dL) 225 H 166 H 123 H (70-110) mg/dL 11/06/24 Range/Units 11:45 POC Glucose (mg/dL) 210 H (70-110) mg/dL
[2024-11-06 17:17] LABS: Glucose,Whole Blood 187 mg/dL (70-110)
[2024-11-06] MEDS: MIDODRINE 5 MG TAB PO SCH (17:43)
[2024-11-06 20:11] LABS: Glucose,Whole Blood 211 mg/dL (70-110)
[2024-11-06] MEDS: IPRATROPIUM-ALBUTEROL 3 ML NEB INHALATION SCH (20:21)
[2024-11-07 06:00] LABS: Glucose,Whole Blood 183 mg/dL (70-110)
[2024-11-07 07:49] VITALS: BP 137/88; PULSE 78; RESP 16; TEMP 98.3
--- NOTE | 2024-11-07 09:32 | P.PN ---
Subjective Progress Note Date: 11/07/24 This is a 79-year-old male patient of Dr. Rogers with past medical history of coronary artery with known intermediate disease involving the diagonal branch, hypertension, dyslipidemia, diabetes, paroxysmal atrial fibrillation on Eliquis, dementia. We have been requested to evaluate the patient for atrial f ibrillation. Patient came into the hospital due to a fall. Patient states that he was walking outside with his walker and all of a sudden he just blacked out and fell to the ground injuring his face. Apparently home health care called the family but this was not witnessed by anyone. He denies any recent medication changes. He feels fine at the time of this evaluation. He denies having chest pain or chest pressure. No lightheadedness or dizziness. No palpitations. He normally walks with his walker. He has been taking all of his medications as directed. Blood pressure 147/87, heart rate 76, pulse ox 99% on room air. Patient has been resumed on his home cardiac medications. Telemetry is atrial fibrillation with controlled ventricular rate -EKG: Atrial fibrillation with ventricular rate of 82 bpm -CT of the head and neck: No acute intracranial process. Frontal scalp edema without evidence of fracture. Chronic small vessel ischemic changes. No evidence of cervical spine fracture. Mild multilevel degenerative disc disease. -Hand x-ray: No acute pathology -Laboratory studies: WBC 9.9, hemoglobin 16, electrolytes are normal. BUN 37 creatinine 1.72 -Home cardiac medications: Eliquis 5 mg twice daily, atorvastatin 10 mg at bedtime, Farxiga 10 mg daily, Lasix 20 mg daily, isosorbide 30 mg daily, lisinopril 10 mg daily, Toprol XL 25 mg daily. -Left heart catheterization performed 05/29/2022 revealed calcified right and left coronary system. Intermediate lesion involving a small second diagonal branch. Plan for medical management. 11/06 patient doing okay. He just had his first bowel movement in a week and feels much better. Denies any chest pain or pressure. Echocardiogram was performed which shows EF 55%. 11/07 Patient apparently was more confused last evening and a sitter is at the bedside. Patient is waiting for rehab to be arranged for discharge. No new complaints from the patient. No arrhythmias on telemetry. Blood pressure 137/88, heart rate 78, pulse ox 99% on room air. Physical examination: Gen: This is a 79-year-old male in no acute distress VS: reviewed HEENT: Significant ecchymosis to the face specially the right orbit, normocephalic. Pupils equal, round. Sclerae is anicteric. NECK: Supple. No JVD. LUNGS: Clear to auscultation. No wheezes or rhonchi. No intercostal retractions. HEART: Regular rate and rhythm. Systolic murmur. ABDOMEN: Soft No tenderness. EXTREMITIES: No pedal edema. No calf tenderness. NEUROLOGICAL: Patient is awake, alert and oriented to person. Assessment: Fall with syncope Paroxysmal atrial fibrillation on Eliquis History of coronary artery disease with intermediate disease involving the diagonal branch Hypertension Dyslipidemia Dementia Plan: Resume patient's home cardiac medications At this time, would recommend continuing Eliquis as the benefits outweigh risk. echo shows preserved EF without significant valvular disease Obtain 30-day event monitor prior to discharge. He is going to memory care center or rehab and they should be able to help manage the monitor and return Patient is cleared for discharge from cardiology and may follow-up with Dr. Rogers in 5 weeks. Nurse practitioner note has been reviewed, I agree with documented findings and plan of care. Patient was seen and examined. Objective - Vital Signs Vital signs: Vital Signs Temp 98.6 F 11/07/24 01:05 Pulse 80 11/07/24 02:00 Resp 18 11/07/24 01:05 BP 105/72 11/07/24 01:05 Pulse Ox 98 11/07/24 01:05 FiO2 Intake & Output 11/06/24 11/07/24 11/07/24 18:59 06:59 18:59 Intake Total 354 Output Total 2400 Balance 354 -2400 Intake: Oral 354 Output: Urine 2400 Other: Voiding Method External Catheter External Catheter # Voids 200 - Labs CBC & Chem 7: 11/05/24 05:20 11/05/24 05:20 Labs: Abnormal Lab Results - Last 24 Hours (Table) 11/06/24 11/06/24 11/06/24 Range/Units 11:45 17:15 20:09 POC Glucose (mg/dL) 210 H 187 H 211 H (70-110) mg/dL 11/07/24 Range/Units 05:56 POC Glucose (mg/dL) 183 H (70-110) mg/dL
[2024-11-07] MEDS: LORazepam 2 MG/ML INJ IV PRN (11:09)
--- NOTE | 2024-11-07 19:24 | DS ---
DISCHARGE SUMMARY A 79-year-old white male, as mentioned, came in with fall, head trauma, cellulitis of the legs, hyperglycemia, laceration of the right forehead above the eye. He had hypotension last night. We kept him 1 more day, started him on midodrine 5 mg a.c. t.i.d. HOME MEDICINES: 1. Fluoxetine 10 daily. 2. Namenda 5 daily. 3. Zestril 10 daily. 4. Imdur 30 daily. 5. Loratadine 10 daily. 6. Flomax 0.4 daily. 7. Toprol-XL 25 daily. 8. Lasix 20 daily. 9. DuoNeb q.i.d. 10.Oxygen 2 L at night or sleeping. 11.Eliquis 5 mg b.i.d. 12.Farxiga 10 daily. 13.Lantus 20 units daily. 14.Singulair 10 daily. 15.NovoLog 7 units subcu t.i.d. 16.Lipitor 20 daily. Ambulate as tolerated. Follow up as an outpatient. PROGNOSIS: Guarded. Ambulate as tolerated. He is going to go to the rehab center today. Maintain his breathing treatments and his oxygen at night. MMODL / IJN: [id number] /
--- NOTE | 2024-11-07 22:30 | HP ---
HISTORY AND PHYSICAL HISTORY OF PRESENT ILLNESS: A 79-year-old white male, fell while climbing up snow. He was outside his [place] home, fell, hit his head. He had blood severely his right eye. He was admitted for trauma to his head and possible concussion and confusion. Head CTs were negative. He was sent to the floor. His sugars are under better control. Breathing treatments go to a rehab center. HOME MEDICATIONS: Reviewed. FAMILY HISTORY: Reviewed. Father with CHF. SOCIAL HISTORY: Reviewed. OPHTHALMOLOGIC HISTORY: Reviewed. PAST MEDICAL HISTORY: COPD, hypertension, diabetes mellitus, cataracts, dementia, chronic renal disease, hypertension, anxiety, depression. PHYSICAL EXAMINATION: VITAL SIGNS: Temperature 97, blood pressure is 130s/100s, pulse 70s-80s, respiratory rate 18-20. CARDIOVASCULAR: S1, S2. LUNGS: Transmitted upper sounds. GI: Soft. NEUROLOGIC: He gives appropriate answers. He appears to be confused. He has a large hematoma and a laceration above his right eye. I have seen him in the ER. Medications have been treating him. Prognosis is guarded. Ambulate as tolerated. IMPRESSION: 1. He has acute on chronic dehydration. 2. Prerenal azotemia. 3. Chronic obstructive pulmonary disease. 4. Fall. 5. Head injury. 6. Laceration of face. 7. Dementia. PLAN: Await for placement for long-term. Continue current home medications. MMRICCOL / FRANCISCO: [id number] /
== END 2024-11-07 12:17 ==
LOC: EC 15:10 → 6NMEDSUR 18:48
PROVIDERS: ADMIT Family Medicine; ATTEND Family Medicine
DX: S01.81XA Laceration without foreign body of other part of head, initial encounter (principal); W19.XXXA Unspecified fall, initial encounter; Y93.01 Activity, walking, marching and hiking; R55 Syncope and collapse; E86.0 Dehydration; F41.9 Anxiety disorder, unspecified; F32.A Depression, unspecified; I25.10 Atherosclerotic heart disease of native coronary artery without angina pectoris; I13.0 Hypertensive heart and chronic kidney disease with heart failure and stage 1 through stage 4 chronic kidney disease, or unspecified chronic kidney disease; I50.9 Heart failure, unspecified; N18.9 Chronic kidney disease, unspecified; E11.22 Type 2 diabetes mellitus with diabetic chronic kidney disease; E78.5 Hyperlipidemia, unspecified; I48.0 Paroxysmal atrial fibrillation; F03.90 Unspecified dementia, unspecified severity, without behavioral disturbance, psychotic disturbance, mood disturbance, and anxiety; J44.9 Chronic obstructive pulmonary disease, unspecified; Z79.01 Long term (current) use of anticoagulants; Z79.4 Long term (current) use of insulin; Z79.51 Long term (current) use of inhaled steroids; Z79.84 Long term (current) use of oral hypoglycemic drugs; Z79.899 Other long term (current) drug therapy; Z88.0 Allergy status to penicillin
CPT/HCPCS: 96374; 99285; 36415; 94640 ×4; 93306; 93270; 97530 ×2; 97162; 97166; 80053; 80048; 85025 ×2; 85610; 81003; 73130; 72125; 70450; G0378 ×4; J2060